=== PATIENT | male | born 1950 | race Caucasian/White ===

== ENCOUNTER 2016-10-13 06:29 | Inpatient (IN) | payer MEDICARE, OTHER ==
[2016-10-02 10:05] VITALS: BMI 54.3
--- NOTE | 2016-10-12 14:27 | HP ---
DATE OF ADMISSION: CHIEF COMPLAINT: Left knee pain. HISTORY OF PRESENT ILLNESS: The patient is a 66-year-old gentleman who presents with progressive left knee pain secondary to osteoarthrosis despite extensive conservative measures. He notes pain that limits his normal function and activities. He has been taking Aleve, in addition has had multiple previous injections. PAST MEDICAL HISTORY: Significant for diabetes, hypertension, arthritis, atrial fibrillation. PAST SURGICAL HISTORY: Significant for colonoscopy and varicose vein surgery. CURRENT MEDICATIONS: 1. Lantus. 2. Lisinopril. 3. Aspirin. 4. Metoprolol. He notes allergies to NOVOCAIN. FAMILY HISTORY: Significant for cancer. SOCIAL HISTORY: Significant for previous tobacco use; however, he quit in 1999. A 16-point review of systems otherwise reviewed and is noncontributory. On examination, the patient is approximately 5 foot 11, 385 pounds of endomorphic habitus. HEENT exam is nonfocal. Neck is supple. He has painless passive motion of his left hip. Straight leg raise is negative. Active motion left knee -8 degrees full extension to 95 degrees of flexion. He is tender about the medial joint line. He has a mild effusion. Collaterals are stable, Rob is negative, Jensen's is equivocal. He has genu varum alignment. His distal neurovascular exam appears to be intact in the left lower extremity. Weight-bearing notch, lateral, and merchant views of the left knee obtained in the office show severe medial and patellofemoral compartment narrowing. IMPRESSION: 1. Left knee severe medial and patellofemoral compartment osteoarthrosis. 2. Increased body mass index. 3. Diabetes. RECOMMENDATIONS: I talked to the patient at length regarding his treatment options. At this point he is quite limited because of pain secondary to his osteoarthrosis. After thorough discussion of his options, he opts to proceed with surgery. We will plan to proceed with left total knee arthroplasty. Risks and benefits are discussed at length in layman's terms. We will institute DVT prophylaxis postoperatively. Patient underwent preoperative medical evaluation by Dr. Orozco.
[~2016-10-13 06:29] MED LIST: ACETAMINOPHEN TAB 500 MG TAB PO ONE; DEXAMETHASONE SOD PHOSPHATE 10 MG/ML 1 ML VIAL IV ONE; HYDROmorphone 1 MG/ML 1 ML SYRINGE IVP PRN; LACTATED RINGERS 1,000 ML IV SCH; MELOXICAM 7.5 MG TAB PO ONE; MIDAZOLAM 2 MG/2 ML VIAL IV PRN; ONDANSETRON 4 MG/2 ML VIAL IVP ONE; TRANEXAMIC ACID 1,000 MG in SODIUM CHLORIDE 0.9% 100 ML IVPB ONE
[2016-10-13 07:09] LABS: Glucose,Whole Blood 142 mg/dL (75-99)
[2016-10-13] MEDS: LACTATED RINGERS 1,000 ML IV SCH (07:16)
[2016-10-13] MEDS ORDERED: fentaNYL (PF) 50 MCG/ML 2 ML AMP IV ONE (07:45)
[2016-10-13] MEDS ORDERED: ePHEDrine 50 MG/ML 1 ML AMP ONE (08:35)
[2016-10-13] MEDS ORDERED: fentaNYL (PF) 50 MCG/ML 2 ML AMP ONE (08:35)
[2016-10-13] MEDS ORDERED: ceFAZolin 10 GM VIAL IVPB ONE (08:35)
[2016-10-13] MEDS ORDERED: MIDAZOLAM 2 MG/2 ML VIAL ONE (08:35)
[2016-10-13] MEDS ORDERED: PROPOFOL 10 MG/ML 20 ML VIAL IV ONE (08:35)
[2016-10-13] MEDS ORDERED: SODIUM CHLORIDE 0.9% IRRIG 3,000 ML BAG IRRIGATION ONE (08:35)
[2016-10-13] MEDS ORDERED: MORPHINE SULFATE (PF) 0.3 MG/0.3 ML SYR ONE (08:35)
[2016-10-13] MEDS ORDERED: LACTATED RINGERS 1,000 ML BAG IV ONE (08:35)
[2016-10-13] MEDS ORDERED: PHENYLEPHRINE-0.9% NACL SYG 1 MG/10 ML SYRINGE ONE (08:35)
[2016-10-13] MEDS ORDERED: ceFAZolin 1,000 MG VIAL ONE (08:35)
[2016-10-13] MEDS ORDERED: ROPIVACAINE 246.25 MG, EPINEPHrine 0.5 MG, KETOROLAC 30 MG, cloNIDine HCL/PF 80 MCG, WA... MISCELLANE ONE ×5 (08:40)
[2016-10-13] MEDS: ceFAZolin 3 GM in SODIUM CHLORIDE 0.9% 100 ML IVPB ONE ×2 (08:42→14:25)
[2016-10-13] MEDS: ceFAZolin 3,000 MG in SODIUM CHLORIDE 0.9% IRRIGATIO 3,000 ML IRRIGATION ONE ×2 (09:20→14:25)
[2016-10-13] MEDS: LACTATED RINGERS 1,000 ML IV ONE ×2 (09:49→14:26)
[2016-10-13] MEDS ORDERED: diphenhydrAMINE 50 MG/ML 1 ML VIAL IVP PRN (10:38)
[2016-10-13] MEDS ORDERED: ONDANSETRON 4 MG/2 ML VIAL IVP PRN (10:38)
[2016-10-13] MEDS ORDERED: NALBUPHINE 10 MG/ML AMPUL IV PRN (10:38)
[2016-10-13] MEDS ORDERED: KETOROLAC 30 MG/ML 1 ML VIAL IVP PRN (10:38)
[2016-10-13] MEDS ORDERED: MORPHINE SULFATE 4 MG/ML SYRINGE IVP PRN ×2 (10:38→17:46)
[2016-10-13] MEDS ORDERED: NALOXONE 0.4 MG/ML 1 ML VIAL IV PRN (10:38)
[2016-10-13] MEDS ORDERED: HYDROcodone/APAP 7.5-325MG 1 EACH TAB PO PRN (11:11)
[2016-10-13] MEDS ORDERED: HYDROmorphone 1 MG/ML 1 ML SYRINGE IVP PRN ×2 (11:11)
[2016-10-13] MEDS ORDERED: MAGNESIUM HYDROXIDE 2,400 MG/10 ML CUP PO PRN (11:11)
--- NOTE | 2016-10-13 11:52 | P.OP ---
Date of Procedure: 10/13/16 Preoperative Diagnosis: Left knee severe tricompartmental osteoarthrosis/obesity Postoperative Diagnosis: Same Procedure(s) Performed: Left total knee arthroplasty/cemented/constrained Implants: Depuy TC 3 size 5 cemented femoral component with a 30 mm stem, size 5 cemented tibial component with a 30 mm stem, 10 mm articular surface, 38 mm cemented patellar component Anesthesia: spinal Surgeon: Afshin Waggoner Electrical Contractor #1: Fitz Christy Estimated Blood Loss (ml): 75 Pathology: other (Bone fragments) Condition: stable Disposition: PACU Indications for Procedure: The patient's a 66-year-old male who presents with progressive left knee pain secondary to osteoarthrosis despite conservative measures. A discussion of the risks and benefits of operative intervention versus continued conservative measures was made with patient. He opted to proceed with surgery. Operative risks to include infection, neurovascular injury, development of blood clots, possible component loosening, possible component failure and need for subsequent procedures was discussed. He understood because of his increased body mass index, he is at higher risk for complications. Informed consent was obtained. Operative Findings: As below Description of Procedure: The patient was brought to the operating room, and after induction of spinal anesthesia the left lower extremity was prepped and draped in normal fashion. The limb was elevated to facilitate exsanguination. The tourniquet was inflated to 270 mmHg. A longitudinal incision extending 3 finger breaths above the superior pole of the patella extending to the medial aspect of the tibial tubercle was then made. The skin and subcutaneous tissues were divided sharply. Electrocautery was used for hemostasis. A medial parapatellar arthrotomy is performed. The medial soft tissues to include the superficial and deep portions of the medial collateral ligament were elevated subperiosteally. The medial hamstrings were also elevated subperiosteally. Medial proximal tibial osteophytes were carefully removed. A portion of the retropatellar fat pad was excised sharply. The patella was everted and the knee flexed. A starting hole was made in the distal femur 1 cm anterior to the posterior cruciate ligament origin. An intramedullary guide was then gently inserted planning on 5 valgus distal cut with 9 mm distal resection. The cutting block was pinned in place the distal cut was then made. The anterior referencing sizing guide was utilized. I felt size 5 was most appropriate. 3 of external rotation was built into the system and verified off the trans- epicondylar axis and the posterior condyles. The cutting block was pinned in place. The anterior, posterior, and chamfer cuts were then made. The box guide was inserted in the box cut was then made with a reciprocating saw. The bone fragment was removed. The distal femur was then reamed to the appropriate depth for the stem extension. The trial component was inserted and was fully seated. There is good anterior to posterior and medial to lateral fit. The trial component was then removed. Attention was then paid towards preparing the proximal tibia. An extra medullary guide was utilized in line with the tibial shaft and second metatarsal distally. A 0 cutting block was utilized. I planned on 2 mm resection from the medial compartment. The cutting block was pinned in place. The proximal tibial cut was then made. The bone fragment was removed. The tibia sized most appropriately at a size 5. The flexion and extension gaps were checked and felt to be symmetric. The tibia was prepared in the appropriate rotation with the appropriate drill and keel punch. I planned on a 30 mm tibial extension. The remnants of the medial lateral menisci were excised at the capsular junction with electrocautery. The trial tibial and femoral components were placed along with a 10 mm articular surface. I was able to obtain full flexion and extension with good stability with varus and valgus stress. Attention was then paid towards preparing the patella. A patella reamer was utilized taking this down to 14 mm of bone stock. A good flush cut was made. Patella sized most appropriately 38 mm. The peg holes were drilled. The trial component was placed. The knee was taken through range of motion. I had good patellofemoral tracking with no hands technique. The trial components were then removed. The bony surfaces were prepared with pulsatile lavage and dried. The posterior soft tissues were injected with ropivacaine. The tibial component was then cemented in placed and was fully seated. Excess cement was removed. The femoral component cemented in placed and was fully seated. Excess cement was removed. The trial 10 mm articular surface was placed and the knee was put in full extension. The patella component was cemented in placed and was fully seated. After the cement had sufficiently hardened, the knee was again taken through range of motion felt to be stable in flexion and extension. The trial articular surface removed and the final 10 mm articular surface was placed. This was fully seated. Pulsatile lavage was skin utilized. The medial parapatellar arthrotomy was closed with #2 Ethibond suture. A deep drain was placed exiting laterally. The tourniquet was deflated with approximately 105 minutes total tourniquet time. Final hemostasis was obtained with electrocautery. The second dose of IV TXA was given. The subcutaneous tissues reapproximated interrupted 2-0 Vicryl sutures. The skin was repaired with 3-0 subcu tissues were strata fix suture. Skin tape and adhesive was applied. A sterile dressing was applied. The patient was awoken from sedation and transferred to the recovery room in good condition. Blood loss was estimated 75 mL. No complications were incurred. Sponge and needle counts were correct at the end the case.
[2016-10-13 12:04] LABS: Glucose,Whole Blood 164 mg/dL (75-99)
--- NOTE | 2016-10-13 12:06 | XR ---
EXAMINATION TYPE: XR knee limited LT DATE OF EXAM: 10/13/2016 12:03 PM COMPARISON: NONE HISTORY: Post op FINDINGS: There is a prosthetic knee in near anatomic alignment. There is soft tissue edema and emphysema. Dumas rgical drain noted. IMPRESSION: 1. Postoperative change. Appears in near-anatomic alignment
[2016-10-13] MEDS: traMADol 50 MG TAB PO SCH ×3 (15:43→21:48)
[2016-10-13] MEDS: ceFAZolin 3 GM in SODIUM CHLORIDE 0.9% 100 ML IVPB SCH (16:25)
[2016-10-13 16:48] LABS: Glucose,Whole Blood 182 mg/dL (75-99)
[2016-10-13] MEDS: INSULIN LISPRO (humaLOG) 300 UNIT/3 ML VIAL SQ SCH ×2 (17:30→21:48)
--- NOTE | 2016-10-13 17:50 | CONS ---
DATE OF CONSULTATION: 10/13/2016 REASON FOR CONSULTATION: Medical management requested by Dr. Orozco. CONSULTATION: This is a 66-year-old patient of Dr. Orozco whose chronic stable medical conditions include history of atrial fibrillation, diabetes mellitus, type 2, hypertension, osteoarthritis, sleep apnea; uses a CPAP machine. Patient has undergone left total knee arthroplasty. Post-procedure he is doing well; has actually been up in the hallway. No nausea or vomiting. Patient has lost actually about 100 pounds. Sitting up in a chair. Comfortable. REVIEW OF SYSTEMS: CONSTITUTIONAL: None. HEENT: None. RESPIRATORY: None. CARDIOVASCULAR: None. GASTROINTESTINAL: None. GENITOURINARY: None. MUSCULOSKELETAL: Pain in the joints. DERMATOLOGICAL: None. HEMATOLOGICAL: None. LYMPHATIC: None. PSYCHIATRY: None. NEUROLOGICAL: None. PAST MEDICAL HISTORY: 1. Atrial fibrillation. 2. Diabetes mellitus, type 2. 3. Hypertension. 4. Osteoarthritis. 5. Sleep apnea. PAST SURGICAL HISTORY: 1. Laser surgery. 2. Vein removal from right leg. SOCIAL HISTORY: . Smoked 1 to 2 packs a day for 30 years; stopped 15 years ago. FAMILY HISTORY: Cancer. HOME MEDICATIONS: 1. Potassium 20 mEq a day. 2. Multivitamin 1 tablet p.o. daily. 3. Lopressor/hydrochlorothiazide 50/25 half a tablet p.o. daily. 4. Zestril 10 mg p.o. at bedtime. 5. Lantus 60 units subcutaneously in the morning. 6. Aspirin 325 p.o. daily. 7. Xarelto. ALLERGIES: NONE. On examination, temperature 97.4, pulse 85, respiration 16, blood pressure 92/53, pulse ox 93% on 2 L. GENERAL APPEARANCE: Obese; BMI 54.1. Sitting up, not in distress. EYES: Pupils equal. Conjunctivae normal. HEENT: External appearance of nose and ears normal. Oral cavity normal. NECK: JVD not raised. Mass not palpable. RESPIRATORY: Effort normal. Lungs are clear. CARDIOVASCULAR: First and second sounds normal. No edema. ABDOMEN: Soft, nontender. Liver and spleen not palpable. LYMPHATIC: No lymph node palpable in neck or axillae. PSYCHIATRY: Alert and oriented x3. Mood and affect normal. EXTREMITIES: Left knee in a dressing. INVESTIGATIONS: Accu-Cheks are noted. ASSESSMENT: 1. Morbid obesity; body mass index of 54. 2. Diabetes mellitus, type 2, chronically on insulin. 3. Essential hypertension. 4. Primary osteoarthritis in multiple joints. 5. Obstructive sleep apnea, on CPAP machine. PLAN: Patient's home medications are resumed. Accu-Cheks will be followed. Patient uses CPAP machine. Anticoagulation per Dr. Waggoner. Care was discussed with the patient and family who were at bedside. Thank you, Dr. Waggoner.
[2016-10-13 20:01] LABS: Glucose,Whole Blood 159 mg/dL (75-99)
[2016-10-13] MEDS: LISINOPRIL 10 MG TAB PO SCH (21:48)
[2016-10-13] MEDS: SENNOSIDES-DOCUSATE SODIUM 1 EACH TAB PO SCH (21:48)
[2016-10-14] MEDS: LACTATED RINGERS 1,000 ML IV SCH ×2 (00:09→17:45)
[2016-10-14] MEDS: ceFAZolin 3 GM in SODIUM CHLORIDE 0.9% 100 ML IVPB SCH (00:34)
[2016-10-14 07:15] LABS: Glucose,Whole Blood 124 mg/dL (75-99)
[2016-10-14 07:17] LABS: INR 1.1 (<1.1); Prothrombin Time 10.7 sec (9.0-12.0)
[2016-10-14 07:21] LABS: Basophils % (A) 0 %; CH 30.6; CHCM 33.8; Eosinophils % (A) 0 %; HCT 38.2 % (39.0-53.0); HDW 2.65; HGB 12.5 gm/dL (13.0-17.5); Luc # (Auto) 0.12; Luc % (Auto) 2; Lymphocytes # (A) 0.6 k/uL (1.0-4.8); Lymphocytes % (A) 8 %; MCH 29.7 pg (25.0-35.0); MCHC 32.6 g/dL (31.0-37.0); Mean Platelet Volume 7.4; Monocytes # (A) 0.6 k/uL (0-1.0); Monocytes % (A) 8 %; Neutrophils % (A) 82 %; RDW 13.2 % (11.5-15.5); WBC 7.3 k/uL (3.8-10.6); WBC (Perox) 8.19
[2016-10-14] MEDS: INSULIN GLARGINE 100 UNIT/ML 10 ML VIAL SQ SCH (08:06)
[2016-10-14] MEDS: FAMOTIDINE 20 MG TAB PO SCH (08:06)
[2016-10-14] MEDS: POTASSIUM CHLORIDE ER 20 MEQ TAB.ER PO SCH (08:06)
[2016-10-14] MEDS: traMADol 50 MG TAB PO SCH ×4 (08:07→20:42)
[2016-10-14] MEDS: HYDROcodone/APAP 7.5-325MG 1 EACH TAB PO PRN ×3 (08:08→19:43)
[2016-10-14] MEDS: hydrOXYzine PAMOATE 25 MG CAP PO PRN ×3 (08:08→19:43)
[2016-10-14] MEDS: HYDROCHLOROTHIAZIDE 12.5 MG CAP PO SCH (08:16)
[2016-10-14] MEDS: INSULIN LISPRO (humaLOG) 300 UNIT/3 ML VIAL SQ SCH ×5 (08:17→20:43)
[2016-10-14] MEDS: METOPROLOL TARTRATE 25 MG TAB PO SCH (08:17)
[2016-10-14] MEDS ORDERED: RIVAROXABAN 10 MG TAB PO SCH (09:00)
[2016-10-14] MEDS ORDERED: ENOXAPARIN 30 MG/0.3 ML SYRINGE SQ SCH (09:00)
--- NOTE | 2016-10-14 10:26 | P.PN ---
Progress Note - Text Postoperative day 1 status post total knee arthroplasty ,under spinal anesthesia , and intrathecal morphine given for postoperative analgesia, patient doing well , there is no anesthesia related complications, further management as per her primary team
--- NOTE | 2016-10-14 11:34 | P.PN ---
Subjective Principal diagnosis: Status post left total knee arthroplasty Patient is seen today resting in his hospital chair, his is present at bedside. Patient states he is doing very well. He's ambulated well with therapy at this time. His pain is well-controlled with oral medication. He denies any chest pain, shortness of breath, nausea vomiting, fever chills. Objective - Vital Signs Vital signs: Vital Signs Temp 97.8 F 10/14/16 07:48 Pulse 74 10/14/16 07:48 Resp 15 10/14/16 08:00 BP 108/63 10/14/16 07:48 Pulse Ox 96 10/14/16 10:05 Intake & Output 10/13/16 10/14/16 10/14/16 18:59 06:59 18:59 Intake Total 2141 720 Output Total 525 1160 500 Balance 1616 -440 -500 Intake: IV 1901 720 Lactated Ringers 1,000 ml 720 @ 60 mls/hr IV .[id number] XOCHILT Rx#:[id number] Oral 240 Output: Drainage 420 Left Knee 420 Urine 400 740 500 Uretheral (Tomlin) 740 500 Estimated Blood Loss 125 Other: Voiding Method Indwelling Catheter Indwelling Catheter Indwelling Catheter - Exam Left lower extremity: Incision is clean, dry, and intact. Minimal soft tissue swelling present around the knee. Calf is soft, no tenderness with palpation. Anterior posterior arms of the upper leg are soft. Plantar flexion, dorsiflexion, EHL, FHL are intact. Sensory exam to light touch throughout the extremities intact, capillary refill is less than 3 seconds. - Labs CBC & Chem 7: 10/14/16 06:40 Labs: Abnormal Lab Results - Last 24 Hours (Table) 10/13/16 10/13/16 10/13/16 Range/Units 12:01 16:46 19:59 RBC (4.30-5.90) m/uL Hgb (13.0-17.5) gm/dL Hct (39.0-53.0) % Lymphocytes # (1.0-4.8) k/uL POC Glucose (mg/dL) 164 H 182 H 159 H (75-99) mg/dL 10/14/16 10/14/16 Range/Units 06:40 07:13 RBC 4.20 L (4.30-5.90) m/uL Hgb 12.5 L (13.0-17.5) gm/dL Hct 38.2 L (39.0-53.0) % Lymphocytes # 0.6 L (1.0-4.8) k/uL POC Glucose (mg/dL) 124 H (75-99) mg/dL Assessment and Plan Plan: Assessment: 1. Postop day #1 status post left total knee arthroplasty Plan: 1. Pain control, continue use of oral medication 2. Continue therapy and CPM 3. Daily dressing changes/ice and elevate 4. Encourage incentive spirometer 5. GI and DVT prophylaxis, we'll resume Xarelto 10 mg, discontinue both Lovenox and Coumadin 6. Medical recommendations 7. Discharge planning: Patient will be likely discharged home tomorrow Time with Patient: Less than 30
[2016-10-14 12:29] LABS: Glucose,Whole Blood 112 mg/dL (75-99)
[2016-10-14 17:35] LABS: Glucose,Whole Blood 145 mg/dL (75-99)
[2016-10-14] MEDS ORDERED: WARFARIN 7.5 MG TAB PO ONE (18:00)
[2016-10-14 18:32] VITALS: RESP 16
[2016-10-14] MEDS: SENNOSIDES-DOCUSATE SODIUM 1 EACH TAB PO SCH (19:43)
[2016-10-14] MEDS: LISINOPRIL 10 MG TAB PO SCH (19:43)
[2016-10-14 20:42] LABS: Glucose,Whole Blood 144 mg/dL (75-99)
--- NOTE | 2016-10-14 22:10 | PN ---
DATE OF SERVICE: 10/14/2016 PRESENTING COMPLAINT: Status post left knee surgery. INTERVAL HISTORY: The patient is status post left knee surgery. Has been up in the hallway. No chest pain, shortness of breath. Did tolerate his diet. Family at the bedside. Review systems done for constitutional, cardiovascular, GI, pulmonary; relevant findings, as above. Current medications are reviewed. On examination, temperature 97.8, pulse 74, respirations 16, blood pressure 118/63, pulse ox 97% on room air. GENERAL APPEARANCE: Sitting up in a chair, comfortable. EYES: Pupils equal. Conjunctivae normal. Not raised. Mass not palpable. RESPIRATORY: Effort normal. Lungs are clear. CARDIOVASCULAR: First and second sounds normal. No edema. ABDOMEN: Soft, nontender. Liver and spleen not palpable. PSYCHIATRY: Alert and oriented x3. Mood and affect normal. INVESTIGATIONS: White count 7.3, hemoglobin 12.5. ASSESSMENT: 1. Morbid obesity, body mass index of 54. 2. Diabetes mellitus type 2, chronically on insulin. 3. Essential hypertension. 4. Primary osteoarthritis of multiple joints. 5. Obstructive sleep apnea on CPAP machine. PLAN: Care was discussed with the patient. Overall doing much better. Care was discussed with the family at the bedside. Thank you, Dr. Waggoner.
[2016-10-15] MEDS: HYDROcodone/APAP 7.5-325MG 1 EACH TAB PO PRN ×2 (04:52→10:27)
[2016-10-15] MEDS: hydrOXYzine PAMOATE 25 MG CAP PO PRN ×2 (04:52→10:27)
[2016-10-15 07:16] LABS: Glucose,Whole Blood 151 mg/dL (75-99)
[2016-10-15] MEDS ORDERED: RIVAROXABAN 10 MG TAB PO SCH (09:00)
[2016-10-15] MEDS: FAMOTIDINE 20 MG TAB PO SCH (09:07)
[2016-10-15] MEDS: POTASSIUM CHLORIDE ER 20 MEQ TAB.ER PO SCH (09:07)
[2016-10-15] MEDS: METOPROLOL TARTRATE 25 MG TAB PO SCH (09:07)
[2016-10-15] MEDS: HYDROCHLOROTHIAZIDE 12.5 MG CAP PO SCH (09:08)
[2016-10-15] MEDS: LACTATED RINGERS 1,000 ML IV SCH (09:08)
[2016-10-15] MEDS: INSULIN LISPRO (humaLOG) 300 UNIT/3 ML VIAL SQ SCH ×2 (09:08→13:05)
[2016-10-15] MEDS: traMADol 50 MG TAB PO SCH ×2 (09:17→13:14)
[2016-10-15] MEDS: INSULIN GLARGINE 100 UNIT/ML 10 ML VIAL SQ SCH (09:18)
--- NOTE | 2016-10-15 09:57 | P.PN ---
Subjective Principal diagnosis: Status post left total knee arthroplasty Patient is seen today resting in his hospital chair. Patient states he is doing very well. His pain is well-controlled with oral medication. He denies any chest pain, shortness of breath, nausea vomiting, fever chills. Objective - Vital Signs Vital signs: Vital Signs Temp 98.3 F 10/15/16 01:59 Pulse 90 10/15/16 01:59 Resp 16 10/15/16 03:05 BP 115/63 10/15/16 01:59 Pulse Ox 94 L 10/15/16 01:59 Intake & Output 10/14/16 10/15/16 10/15/16 18:59 06:59 18:59 Intake Total 1320 Output Total 2500 1500 Balance -1180 -1500 Intake: IV 480 Lactated Ringers 1,000 ml 480 @ 60 mls/hr IV .[id number] XOCHILT Rx#:[id number] Oral 840 Output: Urine 2500 1500 Uretheral (Tomlin) 500 Other: Voiding Method Indwelling Catheter Toilet Urinal # Voids 1 - Exam Left lower extremity: Incision is clean, dry, and intact. Minimal soft tissue swelling present around the knee. Calf is soft, no tenderness with palpation. Anterior posterior arms of the upper leg are soft. Plantar flexion, dorsiflexion, EHL, FHL are intact. Sensory exam to light touch throughout the extremities intact, capillary refill is less than 3 seconds. - Labs CBC & Chem 7: 10/14/16 06:40 Labs: Abnormal Lab Results - Last 24 Hours (Table) 10/14/16 10/14/16 10/14/16 Range/Units 12:28 17:32 20:41 POC Glucose (mg/dL) 112 H 145 H 144 H (75-99) mg/dL 10/15/16 Range/Units 06:58 POC Glucose (mg/dL) 151 H (75-99) mg/dL Assessment and Plan Plan: Assessment: 1. Postop day #2 status post left total knee arthroplasty Plan: 1. Pain control, continue use of oral medication 2. Continue therapy and CPM 3. Daily dressing changes/ice and elevate 4. Encourage incentive spirometer 5. GI and DVT prophylaxis, we will discharge home on Xarelto 10 mg 6. Medical recommendations 7. Discharge planning: Patient will be discharged home likely today Time with Patient: Less than 30
--- NOTE | 2016-10-15 09:59 | P.DS ---
Providers Date of admission: 10/13/16 06:29 Expected date of discharge: 10/15/16 Attending physician: Afshin Waggoner Consults: 10/13/16 11:15 Consult Physician Routine Consulting Provider: Cristobal Bains Consult Reason/Comments: Medical Management Do you want consulting provider notified?: Yes Primary care physician: [facility] Hospital Course: Date of admission: 10/13/2016 Date of discharge: 10/15/2016 Admission diagnosis: Status post left total knee arthroplasty Discharge diagnosis: Same Attending physician: Dr. Waggoner Surgical procedures: Left total knee arthroplasty Brief history: Patient is a 66-year-old male with a history of progressive primary left knee osteoarthritis. At this point patient has failed conservative treatment measures and has opted to proceed with a elective left total knee arthroplasty. Hospital course: Details of patient's surgery can be found in operative report. Patient tolerated the procedure well and was subsequently transported to orthopedic floor. Patient's orthopeidc and medical care was provided daily. Patient had daily laboratory tests performed for evaluation of overall blood counts. Patient had daily physical therapy to include strengthening range of motion as well as education with walker ambulation. Patient had daily CPM usage as part of their physical therapy program. Patient was treated with Xarelto for their postoperative DVT prophylaxis during their inpatient stay. Patient was noted to have a relatively uneventful postoperative course. Patient reported satisfactory pain control with oral pain medications by postoperative day 0. Patient showed satisfactory progress with physical therapy. Patient moved steadily through the program and had no difficulty meeting the goals by postoperative day 2. Given patient's otherwise satisfactory course and having met physical therapy goals, plan is to discharge patient home on postoperative day 2. Discharge condition/disposition: Patient will be discharged home in stable condition. Discharge medications: Instructions are given on resumption of patient's normal daily medications per primary care recommendation, in addition patient will be prescribed Marion 7.5 mg/325 mg, tramadol 50 mg, Colace 100 mg, Xarelto 10 mg. Discharge instructions: 1. Wound care and infection precautions, keep incision dry and covered while showering, no lotions, creams, moisturizers. No soaking, tubs, pools, hottubs. Do not scrub over the incision. 2. Weight-bear as tolerated with walker / cane until follow-up. 3. Ice and elevate when necessary. Do not exceed 20 minutes per hour with ice pack. 4. Utilize compression sleeve until seen at first follow up appointment. 5. Visiting nursing care. 6. Home physical therapy including home CPM. 7. Pain meds and anticoagulants per prescription. 8. Pain medication has potential to cause constipation. Increase oral fluid and fiber intake. Contact primary care provider if you have not had a bowel movement within 48 hours after discharge 9. No anti-inflammatory medication until discussed at first post operative visit, this including Motrin, Aleve, Mobic, Diclofenac. 10. Follow up in office at 2 weeks postop with Kaushal Christy PA-C 11. Follow up with your primary care doctor 7-10 days after discharge. 12. Contact [facility] with any questions, . Procedures: Left total knee arthroplasty Patient Condition at Discharge: Good Plan - Discharge Summary New Discharge Prescriptions: Docusate [Colace] 100 mg PO DAILY #20 capsule HYDROcodone/APAP 7.5-325MG [Marion 7.5] 1 - 2 each PO Q6HR PRN #60 tab PRN Reason: Pain Rivaroxaban [Xarelto] 10 mg PO DAILY #12 tab traMADol HCl [Ultram] 50 mg PO Q6H PRN #40 tab PRN Reason: Pain Discharge Medication List Aspirin 325 mg PO DAILY 09/03/16 [History] Insulin Glargine [Lantus] 60 unit SQ QAM 09/03/16 [History] Lisinopril [Zestril] 10 mg PO HS 09/03/16 [History] Metoprolol/Hydrochlorothiazide [Lopressor Hct 50-25 mg Tab] 0.5 tab PO QAM 09/03 [History] Multivitamins, Thera [Multivitamin] 1 tab PO DAILY 09/03/16 [History] Potassium Chloride [Klor-Con 20] 20 meq PO DAILY 09/03/16 [History] Rivaroxaban [Xarelto] 10 mg PO DAILY #12 tab 10/13/16 [Rx] Docusate [Colace] 100 mg PO DAILY #20 capsule 10/15/16 [Rx] HYDROcodone/APAP 7.5-325MG [Marion 7.5] 1 - 2 each PO Q6HR PRN #60 tab 10/15/16 [ Rx] traMADol HCl [Ultram] 50 mg PO Q6H PRN #40 tab 10/15/16 [Rx] Follow up Appointment(s)/Referral(s): [facility], [NON-STAFF] - Jim Orozco DO [Primary Care Provider] - 1 Week (pateint has appt to see dr orozco on 10-23-2016) [employer] Christy, JOSÉ LUIS [PHYSICIAN SAND DIGGER] - 10/30/16 1:30 pm Activity/Diet/Wound Care/Special Instructions: [facility] -[phone] CPM - has at home *quilting supervisor Katiuska alcantar from [facility] Orthopedic Discharge Instructions: 1. Wound care and infection precautions, keep incision dry and covered while showering, no lotions, creams, moisturizers. No soaking, pools, hot tubs. Do not scrub over incision. 2. Weight-bear as tolerated with walker / cane until follow-up. 3. Ice and elevate when necessary. Do not exceed 20 minutes per hour with ice pack. 4. Utilize compression sleeve until seen at first follow up appointment. 5. Visiting nursing care. 6. Home physical therapy including home CPM. 7. Pain meds and anticoagulants per prescription. 8. Pain medication has potential to cause constipation. Increase oral fluid and fiber intake. Contact primary care provider if you have not had a bowel movement within 48 hours after discharge. 9. No anti-inflammatory medication until discussed at first post operative visit, this including Motrin, Aleve, Mobic, Diclofenac. 10. Follow up in office at 2 weeks postop with Kaushal Christy PA-C 11. Follow up with your primary care doctor 7-10 days after discharge. 12. Contact [facility] with any questions, . Discharge Disposition: HOME WITH HOME HEALTH SERVICES
[2016-10-15 10:47] VITALS: BP 138/75; PULSE 95; TEMP 98.9
[2016-10-15 12:42] LABS: Glucose,Whole Blood 133 mg/dL (75-99)
--- NOTE | 2016-10-15 22:32 | PN ---
DATE OF SERVICE: 10/15/2016 PRESENTING COMPLAINT: Left knee surgery. INTERVAL HISTORY: Patient was seen by me this morning; doing much better. With therapy some pain is present. There is no chest pain, shortness of breath. His is at the bedside. Review of systems done for constitutional, cardiovascular, GI, pulmonary; relevant findings as above. Current medications are reviewed. On examination, temperature 98.9, pulse 95, respiration 16, blood pressure 130/75, pulse ox 94% on room air. GENERAL APPEARANCE: Sitting up, comfortable. EYES: Pupils equal. Conjunctivae normal. NECK: JVD not raised. Mass not palpable. RESPIRATORY: Effort normal. Lungs are clear. CARDIOVASCULAR: First and second sounds normal. No edema. ABDOMEN: Soft, non-tender. Liver and spleen not palpable. PSYCHIATRY: Alert and oriented x3. Mood and affect normal. INVESTIGATIONS: Accu-Cheks are noted. ASSESSMENT: 1. Morbid obesity; body mass index of 54. 2. Diabetes mellitus, type 2, chronically on insulin. 3. Essential hypertension. 4. Primary osteoarthritis of multiple joints. 5. Obstructive sleep apnea; uses CPAP machine. PLAN: Care was discussed with the patient and his . ( ) follow up with family doctor upon discharge. Thank you, Dr. Waggoner.
== END 2016-10-15 14:32 | disposition home health service (06) | DRG 470 ==
LOC: 2ORMAIN 06:29 → 3SUR 11:33
PROVIDERS: ADMIT Orthopaedic Surgery; ATTEND Orthopaedic Surgery
PROC: 0SRD0J9 Replacement of Left Knee Joint with Synthetic Substitute, Cemented, Open Approach (ICD-10-PCS; principal; 2016-10-13 08:00)
DX: M17.12 Unilateral primary osteoarthritis, left knee (principal); I48.91 Unspecified atrial fibrillation; I10 Essential (primary) hypertension; E11.9 Type 2 diabetes mellitus without complications; G47.33 Obstructive sleep apnea (adult) (pediatric); Z87.891 Personal history of nicotine dependence; M21.162 Varus deformity, not elsewhere classified, left knee; Z79.82 Long term (current) use of aspirin; Z79.4 Long term (current) use of insulin; Z79.899 Other long term (current) drug therapy; Z88.4 Allergy status to anesthetic agent
CPT/HCPCS: 83036; 85025; 85610; 88300

== ENCOUNTER → 2017-06-23 | Outpatient (CLI) | payer MEDICARE, OTHER ==
--- NOTE | 2017-06-23 11:14 | FL ---
EXAMINATION TYPE: FL UGI DATE OF EXAM: 06/23/2017 COMPARISON: NONE HISTORY: Dysphasia, food getting stuck in lower esophagus per patient. TECHNIQUE: A double contrast UGI study is performed utilizing air and barium. A total of 45 seconds of fluoroscopic time was utilized during procedure. A total of 31 spot fluoroscopic images are saved to PACS. FINDINGS: Sheet Metal Pattern Cutter images of the abdomen shows overall nonobstructive bowel gas pattern. Moderate to se isi spurring and disc space narrowing throughout the thoracolumbar spine is present. Exam is slightl y suboptimal due to patient's body habitus, could not evaluate in oblique and true lateral positionin g. The esophagus shows satisfactory motility and emptying into the stomach during upright imaging. Some dysmotility and diminished peristalsis prone drinking is noted. A small sliding-type hiatal hernia is seen. No intraluminal mass or suspicious stricture is identified. The stomach shows satisfactory distensibility, peristalsis, and mucosal folds. No evidence of any ma ss or ulcer disease. No significant gastroesophageal reflux was seen during real time performance of this study. The duodenal bulb, sweep, and proximal small bowel loops are unremarkable. IMPRESSION: No significant finding is seen to account for patient's symptoms. No distal esophageal st ricture or mass is noted.
== END | disposition home or self-care (01) ==
LOC: RADFLWHC 10:06
PROVIDERS: ATTEND Family Medicine
DX: R13.19 Other dysphagia (principal)
CPT/HCPCS: 74240

== ENCOUNTER → 2018-03-15 | Outpatient (CLI) | payer MEDICARE, OTHER ==
--- NOTE | 2018-03-15 10:09 | FL ---
EXAMINATION TYPE: FL barium swallow DATE OF EXAM: 03/15/2018 CLINICAL HISTORY: Dysphasia TECHNIQUE: A double contrast esophagram is performed utilizing air and barium. A total of 38 second s of fluoroscopic time was utilized during procedure. 16 images submitted. COMPARISON: None FINDINGS: The esophagus shows normal motility and emptying into the stomach. There was a stricture of the distal esophagus near the GE junction extending several centimeters. There is mild irregularity of the mucosa. No definite gastroesophageal reflux. IMPRESSION: Stricture of the distal esophagus with irregular mucosa correlate with direct visualizati on to assess for mass or mucosal lesion. Otherwise consider reflux stricture.
--- NOTE | 2018-03-15 10:55 | US ---
EXAMINATION TYPE: US thyroid st tissue head/neck DATE OF EXAM: 03/15/2018 COMPARISON: NONE CLINICAL HISTORY: R47.02 DYSPHAGIA. Having Barium Swallow today. GLAND SIZE: Right Lobe: 4.5 x 2.7 x 2.6 cm Overall Parenchyma: heterogenous Left Lobe: 4.3 x 1.9 x 2.4 cm Overall Parenchyma: heterogeneous Isthmus Thickness: 0.5 cm NODULES RIGHT: # of nodules measured on right: 1 1. 0.5 X 0.5 x 0.2 cm hyperechoic with posterior shadowing solid /clustered nodule at the lateral u pper pole with irregular margins; present with microcalcifications. This nodule is wider than tall a nd shows no intranodular vascularity. LEFT: # of nodules measured on left: 1 1. 0.2 X 0.2 x 0.2 cm hypoechoic cystic nodule at the mid pole with well-defined margins. This nod ule is wider as is tall and shows no intranodular vascularity. ISTHMUS: # of nodules measured in the isthmus: 0 Bilateral neck scanned, no evidence of lymphadenopathy. IMPRESSION: Subcentimeter thyroid nodules of questionable clinical significance
== END ==
LOC: RADUSMAIN 08:14
PROVIDERS: ATTEND Family Medicine
DX: K22.2 Esophageal obstruction (principal); E04.2 Nontoxic multinodular goiter
CPT/HCPCS: 74220; 76536

== ENCOUNTER 2018-04-04 06:53 | Day surgery (SDC) | payer MEDICARE, OTHER ==
[2018-04-01 08:33] VITALS: BMI 50.9
[~2018-04-04 06:53] MED LIST changes: -ACETAMINOPHEN TAB 500 MG TAB PO ONE; -DEXAMETHASONE SOD PHOSPHATE 10 MG/ML 1 ML VIAL IV ONE; -HYDROmorphone 1 MG/ML 1 ML SYRINGE IVP PRN; -MELOXICAM 7.5 MG TAB PO ONE; -MIDAZOLAM 2 MG/2 ML VIAL IV PRN; -ONDANSETRON 4 MG/2 ML VIAL IVP ONE; -TRANEXAMIC ACID 1,000 MG in SODIUM CHLORIDE 0.9% 100 ML IVPB ONE
[2018-04-04 07:18] VITALS: RESP 18; TEMP 97.2
[2018-04-04] MEDS ORDERED: LIDOCAINE 1% 20 ML VIAL (10MG/ML) FOR IV START INTRADERMA ONE (07:20)
[2018-04-04 07:23] LABS: Glucose,Whole Blood 110 mg/dL (75-99)
[2018-04-04] MEDS ORDERED: PROPOFOL 10 MG/ML 20 ML VIAL IV ONE (08:19)
[2018-04-04] MEDS ORDERED: LIDOCAINE 1% INJ 10MG/ML (20 ML MDV) ONE (08:19)
[2018-04-04 08:47] VITALS: PULSE 59
--- NOTE | 2018-04-04 08:47 | P.PCN ---
Date of Procedure: 04/04/18 Procedure(s) Performed: Procedure: Esophagogastroduodenoscopy and biopsy. Preoperative diagnosis: Progressive dysphagia and weight loss. Postoperative diagnosis: 1. Distal esophageal mass consistent with cancer. 2. Mild antral gastritis. 3. Multiple biopsies obtained from the antrum and esophagus. Preparation and sedation: Was provided by anesthesia. Brief clinical history: The patient is a 67-year-old male who is scheduled for this evaluation because of progressive dysphagia over the last the several months. The patient reported 30 pound weight loss because he is avoiding solid food and bread. He has remote history of symptomatic acid reflux. This evaluation is to assess for complicated reflux disease or other pathology. Procedure: With the patient on his left lateral decubitus position and after informed consent and adequate sedation, I passed the Olympus-GIF 160 video upper endoscope through the cricopharyngeus down the esophagus. Starting at around 36 cm from the incisors there was nodularity and irregularity of the wall of the esophagus having the appearance of a spread out esophageal mass without obstructing the lumen and not impeding the advancement of the endoscope. This seems to extend in an interrupted fashion to around the GE junction which was at 41-42 cm from the incisors. The area was somewhat friable and I obtained pictures and multiple biopsies to rule out cancer. The endoscope was passed into the stomach which was insufflated with air and inspected in detail including the retroflex view in the cardia. There was some mottling and erythema in the antrum but no ulcers or erosions. Pyloric channel , duodenal bulb, post bulbar area and descending duodenum appeared within normal limits. I obtained multiple biopsies from the antrum and esophagus as mentioned then the endoscope was withdrawn. The patient tolerated the procedure well Plan: I summarized the findings to the patient and to Mrs. Paredes. Will await biopsy results and make further plans. I will keep you updated on his progress.
[2018-04-04 09:02] VITALS: BP 106/71
== END 2018-04-04 09:15 | disposition home or self-care (01) ==
LOC: ORWHC2ENDO 06:53
DX: C15.5 Malignant neoplasm of lower third of esophagus (principal); K29.50 Unspecified chronic gastritis without bleeding; I48.91 Unspecified atrial fibrillation; E11.9 Type 2 diabetes mellitus without complications; I10 Essential (primary) hypertension; G47.33 Obstructive sleep apnea (adult) (pediatric); Z99.89 Dependence on other enabling machines and devices; Z79.82 Long term (current) use of aspirin; Z79.4 Long term (current) use of insulin; Z79.899 Other long term (current) drug therapy
CPT/HCPCS: 88305; 88342; 88341; 43239; J2001; J2704

== ENCOUNTER → 2018-04-23 | Outpatient (CLI) | payer MEDICARE, OTHER ==
--- NOTE | 2018-04-25 09:11 | PE ---
EXAMINATION TYPE: PET CT fusion skull to thigh DATE OF EXAM: 04/23/2018 CLINICAL HISTORY: 67-year-old male initial staging esophageal cancer. TECHNIQUE: Following the intravenous administration of 14.5 mCi of F-18 FDG, whole body images are performed from the skull base to the midthigh. Images are reviewed on the computer in the coronal, a xial, and sagittal planes. Reconstructed rotating images are created on independent workstation and reviewed on the computer. A localization and attenuation correction CT is performed in conjunction with the PET scan. Glucose level: 120 mg/dL CTDI: 6.61 mGy DLP: 665.81 mGy-cm COMPARISON: Barium swallow 03/15/2018. FINDINGS: PET: Physiologic FDG uptake within the neck. Scattered prominent mediastinal lymph nodes in the right paratracheal region measure up to 1.2 cm but show only minimal FDG uptake. However, a larger precarinal lymph node measuring 1.5 cm shows moderat e uptake, max SUV 4.6. A lower left paraesophageal lymph node on axial image 102 measures 1.5 cm and shows very intense upta ke, max SUV 11.7. Nonspecific 6 mm peripheral right lower lobe pulmonary nodule, too small for adequate PET characteriz ation, shows no significant FDG uptake. There is circumferential thickening noted just above the GE junction with associated intense uptake, max SUV 10.6. Additional focal thickening along the uppermost stomach just below the GE junction show s very intense uptake, max SUV 15.6. Mild heterogeneous liver uptake likely normal variation. Average liver SUV: 2.9. Enlarged peripancreatic/vanessa hepatis lymph node measures 2.8 cm with intense uptake, max SUV 8.0. An aortocaval lymph node at the level of the kidneys measures 1.9 cm, max SUV 4.8. A 1.1 cm retrocaval lymph node at the level of the kidneys shows moderate FDG uptake, max SUV 4.1. Additional scattered borderline sized retroperitoneal lymph nodes show minimal uptake. ATTENUATION CORRECTION CT: Visualized paranasal sinuses are clear. No cervical lymphadenopathy identified. Heart upper limits of normal in size without pericardial effusion. Coronary vessel calcifications are present. Ascending aorta mildly aneurysmal at 4.0 cm. Conventional arch vessel branching anatomy. N o consolidation or pleural effusion. Spleen enlarged measuring 17.2 cm. Adrenal glands are clear. No mesenteric lymphadenopathy seen. No d ilated small bowel, free fluid, or free air. Mild scattered stool. Minimal diverticulosis of the sigm oid colon. Bladder partially urine distended. Phleboliths in the pelvis. No abnormal fluid collection in the pel vis or pelvic lymphadenopathy seen. Bones: Degenerative changes of the hips and left greater than right SI joints as well as degenerative changes throughout the lumbar spine. Endplate spondylosis mid to lower thoracic spine. No osseous de structive process. IMPRESSION: 1. Intense to very intense focal uptake just above and below the GE junction. 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 2. Metastatic lymphadenopathy: Precarinal, lower left paraesophageal, vanessa hepatic/pancreatic head r egion, and a few additional retroperitoneal lymph nodes at the level of the kidneys. Largest lymph no de in the chest measures 1.5 cm and largest lymph node in the upper abdomen measures 2.8 cm. 3. A 6 mm right basilar pulmonary nodule is too small for adequate PET characterization and is nonspe cific. An early metastatic pulmonary nodule is possible. Attention on follow-up. 4. Incidental: Splenomegaly at 17.2 cm.
== END | disposition home or self-care (01) ==
LOC: RADPETMAIN 08:15
PROVIDERS: ATTEND Internal Medicine Hematology & Oncology
DX: C77.2 Secondary and unspecified malignant neoplasm of intra-abdominal lymph nodes (principal); C77.1 Secondary and unspecified malignant neoplasm of intrathoracic lymph nodes; C77.8 Secondary and unspecified malignant neoplasm of lymph nodes of multiple regions; C15.9 Malignant neoplasm of esophagus, unspecified
CPT/HCPCS: 78815; A9552

== ENCOUNTER 2018-05-30 11:09 | Day surgery (SDC) | payer MEDICARE, OTHER ==
[2018-05-26 09:30] VITALS: BMI 49.2
--- NOTE | 2018-05-29 16:29 | P.GSHP ---
History of Present Illness H&P Date: 05/30/18 CHIEF COMPLAINT: Esophageal cancer HISTORY OF PRESENT ILLNESS: The patient is a 67-year-old male diagnosed with esophageal cancer. He needs a Mediport placement for chemotherapy. PAST MEDICAL HISTORY: See list PAST SURGICAL HISTORY: See list CURRENT MEDICATIONS: See list. ALLERGIES: See list. SOCIAL HISTORY: No active tobacco or alcohol use. FAMILY HISTORY: Noncontributory. REVIEW OF ORGAN SYSTEMS: HEENT: History of dysphagia. No troubles with vision or hearing. PHYSICAL EXAMINATION: Vital signs: Stable GENERAL: Well developed and in no acute distress. Pleasant. HEENT: No sclera icterus. Extraocular movements grossly intact. Moist buccal mucosa. Head is atraumatic, normocephalic. Hears conversational speech. No nasal drainage. NECK: Supple without lymphadenopathy. No JV distention. CHEST: Non-labored respirations and equal bilateral excursions. CARDIOVASCULAR: Regular rate and rhythm. Palpable 2+ radial pulses. ABDOMEN: Nontender. MUSCULOSKELETAL: No clubbing, cyanosis or edema. NEUROLOGIC: No focal or lateralizing signs. PSYCH: Appropriate affect. Alert and oriented to person, place and time. ASSESSMENT: 1. Esophageal cancer 2. Need for chemotherapeutic access. PLAN: 1. Agree with Port-A-Cath placement. Past Medical History Past Medical History: Atrial Fibrillation, Cancer, Diabetes Mellitus, Hypertension, Sleep Apnea/CPAP/BIPAP Additional Past Medical History / Comment(s): uses CPAP, past hx. of a-fib; esophageal stricture, esophageal cancer- radiation completed 05/18/18, gout History of Any Multi-Drug Resistant Organisms: None Reported Past Surgical History: Joint Replacement Additional Past Surgical History / Comment(s): total L knee arthroplasty; nasal surg., colonoscopies, vein surg. right leg Past Anesthesia/Blood Transfusion Reactions: Previous Problems w/ Anesthesia Additional Past Anesthesia/Blood Transfusion Reaction / Comment(s): Woke up during knee surg & colonoscopy Smoking Status: Former smoker - Past Family History Father Family Medical History: Cancer Additional Family Medical History / Comment(s): Skin cancer to ear. Brother(s) Family Medical History: Cancer, Deep Vein Thrombosis (DVT) Additional Family Medical History / Comment(s): 1 brother with esophageal CA; 1 brother with CA to " veins of heart" and DVTs. Mother Family Medical History: Dementia Additional Family Medical History / Comment(s): Mother at the age of 87yrs. Medications and Allergies Home Medications Medication Instructions Recorded Confirmed Type Aspirin 325 mg PO DAILY 09/03/16 05/26/18 History Insulin Glargine [Lantus] 60 unit SQ QAM 09/03/16 05/26/18 History Lisinopril [Zestril] 10 mg PO HS 09/03/16 05/26/18 History Metoprolol/Hydrochlorothiazide 0.5 tab PO QAM 09/03/16 05/26/18 History [Lopressor Hct 50-25 mg Tab] Potassium Chloride [Klor-Con 20] 20 meq PO DAILY 09/03/16 05/26/18 History Indomethacin [Indocin] 50 mg PO TID PRN 05/26/18 05/26/18 History Lidocaine Viscous 2% [Xylocaine 1 dose MUCOUS MEM ACHS 05/26/18 05/26/18 History Viscous] Ondansetron HCl [Zofran] 8 mg PO Q8H PRN 05/26/18 05/26/18 History Allergies Allergy/AdvReac Type Severity Reaction Status Date / Time No Known Allergies Allergy Verified 05/26/18 09:08
[~2018-05-30 11:09] MED LIST changes: +DEXAMETHASONE SOD PHOSPHATE 10 MG/ML 1 ML VIAL IV ONE; +LIDOCAINE 1% 20 ML VIAL (10MG/ML) FOR IV START INTRADERMA PRN; +MIDAZOLAM 2 MG/2 ML VIAL IV PRN; +ONDANSETRON 4 MG/2 ML VIAL IVP ONE; +Pre Op ABX Message 1 EACH MISC MISCELLANE ONE; +fentaNYL (PF) 50 MCG/ML 2 ML AMP IV PRN
[2018-05-30 12:03] VITALS: RESP 16; TEMP 97
[2018-05-30] MEDS ORDERED: LIDOCAINE 1% 20 ML VIAL (10MG/ML) FOR IV START INTRADERMA ONE (12:24)
[2018-05-30 12:25] LABS: Glucose,Whole Blood 106 mg/dL (75-99)
[2018-05-30] MEDS ORDERED: FAMOTIDINE 20 MG/2 ML VIAL IV ONE (12:54)
[2018-05-30] MEDS ORDERED: LIDOCAINE 1% INJ 10MG/ML (20 ML MDV) ONE (15:20)
[2018-05-30] MEDS ORDERED: MIDAZOLAM 2 MG/2 ML VIAL ONE (15:20)
[2018-05-30] MEDS ORDERED: PROPOFOL 10 MG/ML 20 ML VIAL IV ONE (15:20)
[2018-05-30] MEDS ORDERED: fentaNYL (PF) 50 MCG/ML 2 ML AMP ONE (15:20)
[2018-05-30] MEDS ORDERED: KETAMINE 10 MG/ML 20 ML VIAL ONE (15:20)
[2018-05-30] MEDS ORDERED: HEPARIN SODIUM,PORCINE 10,000 UNIT/ML 1 ML VIAL IV ONE ×2 (15:46→15:56)
[2018-05-30] MEDS ORDERED: HEPARIN SODIUM,PORCINE 100 UNIT/ML 5 ML VIAL IV ONE ×2 (15:46→15:56)
[2018-05-30] MEDS ORDERED: BUPIVACAIN-EPI 0.25%-1:200,000 30 ML VIAL SQ ONE ×2 (15:46→15:56)
[2018-05-30] MEDS ORDERED: LACTATED RINGERS 1,000 ML IV ONE (16:30)
--- NOTE | 2018-05-30 16:42 | P.OP ---
Date of Procedure: 05/30/18 Description of Procedure: SURGEON: CASSIE CORBETT MD SLAB TRIPPER: None. PREOPERATIVE DIAGNOSES: 1. Esophageal cancer 2. Morbid obesity next calories, BMI 49.2 3. Diabetes type 2, insulin-dependent 4. Gastroesophageal reflux disease 5. Hypertensive heart disease 6. Gout POSTOPERATIVE DIAGNOSES: 1. Esophageal cancer 2. Morbid obesity next calories, BMI 49.2 3. Diabetes type 2, insulin-dependent 4. Gastroesophageal reflux disease 5. Hypertensive heart disease 6. Gout PROCEDURES PERFORMED: 1. Ultrasound guided central venous access of the right internal jugular venous vein. 2. Fluoroscopic guidance for central venous access right internal jugular vein, 1 seconds. 3. Placement of right internal jugular power port 6 [place] by [employer], [employer] Plus Port ANESTHESIA: IV sedation with local. ESTIMATED BLOOD LOSS: 5 mL. SPECIMENS REMOVED: None. COMPLICATIONS: None. INDICATIONS: The patient is a 67-year-old male with history of esophageal cancer. He presents for chemotherapeutic access. Benefits and risks of surgical intervention were described including bleeding, infection, mechanical problems with his port. Informed consent was obtained. DESCRIPTION OR PROCEDURE: Patient was brought into the operating room, laid in supine position. After adequate IV sedation, the chest and right neck were prepped and draped in a standard sterile fashion including the shoulder with ChloraPrep. Timeout protocol was confirmed with the surgical team regarding the patient's name, procedure to be performed including preoperative medications for which she received IV antibiotics. Bilateral SCDs were placed. An ultrasound was used to capture views of the right internal jugular vein including right carotid artery, which was patent and without thrombus along its course. The right IJ was then localized using anesthetic for the skin. A 16 [place] needle was used to access the IJ. A guidewire was advanced into the IJ with dark nonpulsatile venous blood. Two fingerbreadths distal to the clavicle, on the lateral third, a transverse 1.5 to 2 cm incision was deepened into the skin after localizing the skin. A pocket was created for the port. The port on the back table was flushed with heparinized saline and then attached to the catheter tubing. An adapter was fastened to the actual port site over the tubing. The port easily had fit snug into the pocket. A subcutaneous tunneler was placed along the open end of the tubing and brought out through the separate stab incision. Fluoroscopic guidance confirmed no kinking along the tubing and the port site. Next, the J-wire was exchanged for a catheter sheath for which the tubing was cut to 20 cm and then advanced through the catheter sheath. The Peel-away sheath was then removed and the tubing was secured at the junction of the superior vena cava as well as the right atrium. The tubing was found to be crossed however functional. This was all done under fluoroscopic guidance under 1 seconds. Easy pullback as well as return and aspiration was obtained of the port site. The skin incision was closed using layers using 3-0 Vicryl for the subcu followed by 4-0 Monocryl in a running subcuticular fashion. At the stick site this was also reapproximated using 4-0 Monocryl. The incisions were covered with Optifoam, The skin was cleansed and Exofin liquid glue was applied. Optifoam dressing was placed over the port site. A total of 20 mL of local anesthetic was placed. At the end of the procedure, needle, sponge, and instrument count was verified correct by surgical scheduler. Heparin lock of 5 mL was placed. The patient was awoken and pain free and taken to the second stage postanesthesia care unit. The patient tolerated the procedure well. FINDINGS: 1. No thrombus encountered along the right carotid artery or internal jugular vein. 2. Access of the right internal jugular vein under ultrasound guidance. 3. Fluoroscopy of 1 seconds. Plan - Discharge Summary New Discharge Prescriptions: No Action Potassium Chloride [Klor-Con 20] 20 meq PO DAILY Aspirin 325 mg PO DAILY Lisinopril [Zestril] 10 mg PO HS Metoprolol/Hydrochlorothiazide [Lopressor Hct 50-25 mg Tab] 0.5 tab PO QAM Insulin Glargine [Lantus] 60 unit SQ QAM Indomethacin [Indocin] 50 mg PO TID PRN PRN Reason: gout Lidocaine Viscous 2% [Xylocaine Viscous] 1 dose MUCOUS MEM ACHS Ranitidine HCl [Zantac] 150 mg PO BID Ondansetron HCl [Zofran] 8 mg PO Q8HR PRN PRN Reason: Nausea Loratadine [Claritin] 10 mg PO DAILY Discharge Medication List Aspirin 325 mg PO DAILY 09/03/16 [History] Insulin Glargine [Lantus] 60 unit SQ QAM 09/03/16 [History] Lisinopril [Zestril] 10 mg PO HS 09/03/16 [History] Metoprolol/Hydrochlorothiazide [Lopressor Hct 50-25 mg Tab] 0.5 tab PO QAM 09/03 [History] Potassium Chloride [Klor-Con 20] 20 meq PO DAILY 09/03/16 [History] Indomethacin [Indocin] 50 mg PO TID PRN 05/26/18 [History] Lidocaine Viscous 2% [Xylocaine Viscous] 1 dose MUCOUS MEM ACHS 05/26/18 [ History] Loratadine [Claritin] 10 mg PO DAILY 05/30/18 [History] Ondansetron HCl [Zofran] 8 mg PO Q8HR PRN 05/30/18 [History] Ranitidine HCl [Zantac] 150 mg PO BID 05/30/18 [History] Patient Instructions/Handouts: *Surgery [facility] - (Anesthesia) Discharge Instructions Outpatient Surgery
--- NOTE | 2018-05-30 17:02 | XR ---
EXAMINATION TYPE: XR chest 1V confirm line [facility] DATE OF EXAM: 05/30/2018 COMPARISON: NONE HISTORY: Postop catheter placement TECHNIQUE: Single frontal view of the chest is obtained. FINDINGS: There is a right side central venous jugular catheter with the tip in the superior vena ca va. There is no pleural effusion or pneumothorax. Lungs are clear of infiltrate. Heart and mediastinu m are normal. IMPRESSION: No complicating process seen.
[2018-05-30 17:04] VITALS: BP 110/72; PULSE 87
--- NOTE | 2018-05-30 17:55 | FL ---
Fluoroscopy HISTORY: Port-A-Cath insertion 1 seconds fluoroscopy time supplied to the referring clinician. 1 intraoperative C-arm images docume nt the procedure. See dictated report from general surgery.
== END 2018-05-30 17:24 | disposition home or self-care (01) ==
LOC: OR 11:09
PROVIDERS: ATTEND Surgery Plastic and Reconstructive Surgery
DX: C15.9 Malignant neoplasm of esophagus, unspecified (principal); I10 Essential (primary) hypertension; I48.91 Unspecified atrial fibrillation; E11.9 Type 2 diabetes mellitus without complications; Z79.4 Long term (current) use of insulin; G47.33 Obstructive sleep apnea (adult) (pediatric); Z99.89 Dependence on other enabling machines and devices; E66.01 Morbid (severe) obesity due to excess calories; Z68.42 Body mass index [BMI] 45.0-49.9, adult; K21.9 Gastro-esophageal reflux disease without esophagitis; I11.9 Hypertensive heart disease without heart failure; Z92.3 Personal history of irradiation; Z87.891 Personal history of nicotine dependence; Z79.82 Long term (current) use of aspirin; Z79.899 Other long term (current) drug therapy
CPT/HCPCS: 77001; 36561; 76937; C1788; J2250; J1644; J1642; J1100; J2405; J2001; J3010; J2704

== ENCOUNTER 2018-06-01 01:55 | Emergency (ER) | payer MEDICARE, OTHER ==
--- NOTE | 2018-06-01 03:38 | ED ---
Recheck HPI - General Chief Complaint: Recheck/Abnormal Lab/Rx Stated Complaint: Constipation Time Seen by Provider: 06/01/18 02:08 Source: patient Mode of arrival: ambulatory Limitations: no limitations - History of Present Illness Initial Comments: 67-year-old male patient presents to the emergency department today for evaluation of constipation. Patient states that he has not had a normal bowel movement for the last 6 days. Patient states he has been getting out small amounts of hard stool. Patient states that today he feels that the stool is in the rectum and he is unable to push it out. Patient states he has had some bright red spotting and some perianal discomfort. States he does have hemorrhoids. Patient denies any abdominal pain, nausea, or vomiting with this. Patient did recently complete radiation for esophageal cancer and will start chemotherapy tomorrow. He denies any fever or chills. Patient denies any recent rash, shortness breath, chest pain, back pain, numbness, tingling, dizziness, weakness, hematuria, dysuria, urinary urgency, urinary frequency, headache, visual changes, or any other complaints. - Related Data Home Medications Medication Instructions Recorded Confirmed Aspirin 325 mg PO DAILY 09/03/16 05/30/18 Insulin Glargine [Lantus] 60 unit SQ QAM 09/03/16 05/30/18 Lisinopril [Zestril] 10 mg PO HS 09/03/16 05/30/18 Metoprolol/Hydrochlorothiazide 0.5 tab PO QAM 09/03/16 05/30/18 [Lopressor Hct 50-25 mg Tab] Potassium Chloride [Klor-Con 20] 20 meq PO DAILY 09/03/16 05/30/18 Indomethacin [Indocin] 50 mg PO TID PRN 05/26/18 05/30/18 Lidocaine Viscous 2% [Xylocaine 1 dose MUCOUS MEM ACHS 05/26/18 05/30/18 Viscous] Loratadine [Claritin] 10 mg PO DAILY 05/30/18 05/30/18 Ondansetron HCl [Zofran] 8 mg PO Q8HR PRN 05/30/18 05/30/18 Ranitidine HCl [Zantac] 150 mg PO BID 05/30/18 05/30/18 Previous Rx's Medication Instructions Recorded Hydrocortisone/Pramoxine 1 applic RECTAL BID #1 bottle 06/01/18 [Proctofoam-Hc 1%-1% Foam] Allergies Allergy/AdvReac Type Severity Reaction Status Date / Time No Known Allergies Allergy Verified 06/01/18 02:02 Review of Systems ROS Statement: Those systems with pertinent positive or pertinent negative responses have been documented in the HPI. ROS Other: All systems not noted in ROS Statement are negative. Past Medical History Past Medical History: Atrial Fibrillation, Cancer, Diabetes Mellitus, Hypertension, Sleep Apnea/CPAP/BIPAP Additional Past Medical History / Comment(s): uses CPAP, past hx. of a-fib; esophageal stricture, esophageal cancer- radiation completed 05/18/18, gout History of Any Multi-Drug Resistant Organisms: None Reported Past Surgical History: Joint Replacement Additional Past Surgical History / Comment(s): total L knee arthroplasty; nasal surg., colonoscopies, vein surg. right leg Past Anesthesia/Blood Transfusion Reactions: Previous Problems w/ Anesthesia Additional Past Anesthesia/Blood Transfusion Reaction / Comment(s): Woke up during knee surg & colonoscopy Past Psychological History: No Psychological Hx Reported Smoking Status: Former smoker Past Alcohol Use History: None Reported Past Drug Use History: None Reported - Past Family History Father Family Medical History: Cancer Additional Family Medical History / Comment(s): Skin cancer to ear. Brother(s) Family Medical History: Cancer, Deep Vein Thrombosis (DVT) Additional Family Medical History / Comment(s): 1 brother with esophageal CA; 1 brother with CA to " veins of heart" and DVTs. Mother Family Medical History: Dementia Additional Family Medical History / Comment(s): Mother at the age of 87yrs. General Exam Limitations: no limitations General appearance: alert, in no apparent distress, other (This is a well- developed, well-nourished elderly male patient in no acute distress. Vital signs upon presentation are temperature 97.7F, pulse 108, respirations 18, blood pressure 134/82, pulse ox 95% on room air.) Eye exam: Present: normal appearance, PERRL, EOMI. Absent: scleral icterus, conjunctival injection, periorbital swelling ENT exam: Present: normal exam, normal oropharynx, mucous membranes moist Respiratory exam: Present: normal lung sounds bilaterally. Absent: respiratory distress, wheezes, rales, rhonchi, stridor Cardiovascular Exam: Present: regular rate, normal rhythm, normal heart sounds. Absent: systolic murmur, diastolic murmur, rubs, gallop, clicks GI/Abdominal exam: Present: soft, normal bowel sounds. Absent: distended, tenderness, guarding, rebound, rigid Rectal exam: Present: hemorrhoids (3 large hemorrhoids, erythematous but no evidence of thrombosis.) Neurological exam: Present: alert, oriented X3, CN II-XII intact Psychiatric exam: Present: normal affect, normal mood Skin exam: Present: warm, dry, intact, normal color. 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 Patient states he has been having small hard bowel movement over the last several days. He denies any abdominal pain, nausea, or vomiting. States he can feel the stool in his rectum but he cannot get it out. Physical examination did reveal 3 large hemorrhoids with some evidence of bleeding but no evidence of thrombosis. I did perform rectal examination did reveal a stool ball in the rectum but was unable to disimpact him. He was given a milk of molasses enema did have a large bowel movement. Patient states he is feeling much better. He'll be discharged home with Proctofoam for hemorrhoid symptom management. He is instructed regarding sitz baths. Instructed to follow-up with his primary care physician for recheck in 1-2 days. Return parameters discussed in detail. He verbalizes understanding and agrees this plan. Disposition Clinical Impression: Constipation, Hemorrhoids Disposition: HOME SELF-CARE Condition: Good Instructions: Constipation (ED), Hemorrhoids (ED) Additional Instructions: Do warm sitz baths to aid with hemorrhoid discomfort (Fill tub with a few inches of hot water, sit for a short period). Use hemorrhoid cream as needed. Increase fluids and fiber in the diet. Follow up with your primary care physician for recheck in 1-2 days. Return here immediately for any new, worsening, or concerning symptoms. Prescriptions: Hydrocortisone/Pramoxine [Proctofoam-Hc 1%-1% Foam] 1 applic RECTAL BID #1 bottle Is patient prescribed a controlled substance at d/c from ED?: No Referrals: Jim Orozco DO [Primary Care Provider] - 1-2 days Time of Disposition: 03:53
[2018-06-01 03:56] VITALS: BP 142/98; PULSE 80; RESP 16; TEMP 98
== END 2018-06-01 04:05 | disposition home or self-care (01) ==
LOC: EC 01:55
DX: K59.00 Constipation, unspecified (principal); K64.9 Unspecified hemorrhoids; C15.9 Malignant neoplasm of esophagus, unspecified; E11.9 Type 2 diabetes mellitus without complications; I10 Essential (primary) hypertension; G47.30 Sleep apnea, unspecified; I48.91 Unspecified atrial fibrillation; Z79.82 Long term (current) use of aspirin; Z79.4 Long term (current) use of insulin; Z79.899 Other long term (current) drug therapy; Z87.891 Personal history of nicotine dependence
CPT/HCPCS: 99283

== ENCOUNTER 2018-06-22 13:40 | Day surgery (SDC) | payer MEDICARE, OTHER ==
[2018-06-22 14:10] VITALS: BP 142/84; PULSE 88; RESP 16; TEMP 98
--- NOTE | 2018-06-22 16:35 | IR ---
Port-A-Cath check HISTORY: Malfunctioning Port-A-Cath 0.1 minutes fluoroscopy time, 141 intraoperative images obtained. Correlation to prior chest x-ray 05/30/2018 Real-time fluoroscopy shows that the Port-A-Cath port in the right pectoral region shows a loop in th e neck, distal tip of the catheter is within the soft tissues rather than within the region of the tracey perior vena cava. IMPRESSION: Port-A-Cath tip is no longer present overlying the superior vena cava. A Yellow level critical message alert has been initiated for Shannon Fernandez via the [employer] Critical Results System on 06/22/2018 4:33 PM. This message alert has been sent to Shannon Fernandez via the preferences provided by the clinician for the receipt of Radiology Critical Findings. Message ID [id number].
== END 2018-06-22 15:50 | disposition home or self-care (01) ==
LOC: CATHCVL 13:40
PROVIDERS: ATTEND Radiology Diagnostic Radiology
DX: T82.514A Breakdown (mechanical) of infusion catheter, initial encounter (principal); C15.5 Malignant neoplasm of lower third of esophagus; E11.9 Type 2 diabetes mellitus without complications; I10 Essential (primary) hypertension; I48.91 Unspecified atrial fibrillation; E66.9 Obesity, unspecified; Z68.42 Body mass index [BMI] 45.0-49.9, adult; Z79.4 Long term (current) use of insulin; Z79.899 Other long term (current) drug therapy; Z87.891 Personal history of nicotine dependence
CPT/HCPCS: 36598

== ENCOUNTER → 2018-07-06 | Day surgery (SDC) | payer MEDICARE, OTHER ==
[2018-06-30 11:23] VITALS: BMI 48.7
--- NOTE | 2018-07-05 22:54 | P.GSHP ---
History of Present Illness H&P Date: 07/06/18 CHIEF COMPLAINT: Esophageal cancer HISTORY OF PRESENT ILLNESS: The patient is a 67-year-old male diagnosed with esophageal cancer. He had a Mediport placement over a month ago now with malfunction requiring replacement. PAST MEDICAL HISTORY: See list PAST SURGICAL HISTORY: See list CURRENT MEDICATIONS: See list. ALLERGIES: See list. SOCIAL HISTORY: No active tobacco or alcohol use. FAMILY HISTORY: Noncontributory. REVIEW OF ORGAN SYSTEMS: CONSTITUTIONAL: Has weight loss. PHYSICAL EXAMINATION: Vital signs: Stable GENERAL: Well developed and in no acute distress. Pleasant. HEENT: No sclera icterus. Extraocular movements grossly intact. Moist buccal mucosa. Head is atraumatic, normocephalic. Hears conversational speech. No nasal drainage. NECK: Supple without lymphadenopathy. No JV distention. CHEST: Non-labored respirations and equal bilateral excursions. Port along right chest wall CARDIOVASCULAR: Regular rate and rhythm. Palpable 2+ radial pulses. ABDOMEN: Nontender. MUSCULOSKELETAL: No clubbing, cyanosis or edema. NEUROLOGIC: No focal or lateralizing signs. PSYCH: Appropriate affect. Alert and oriented to person, place and time. ASSESSMENT: 1. Esophageal cancer 2. Need for chemotherapeutic access. PLAN: 1. Agree with revision/replacement of Port-A-Cath Past Medical History Past Medical History: Atrial Fibrillation, Cancer, Diabetes Mellitus, Hypertension, Sleep Apnea/CPAP/BIPAP Additional Past Medical History / Comment(s): LAST CHEMO 06/23/18, WAS SECOND DOSE (DID NOT USE PORT A CATH THAT DAY) uses CPAP, past hx. of a-fib; esophageal stricture, esophageal cancer- radiation completed 05/18/18, gout History of Any Multi-Drug Resistant Organisms: None Reported Past Surgical History: Joint Replacement Additional Past Surgical History / Comment(s): total L knee arthroplasty; nasal surg., colonoscopies, vein surg. right leg, PORT A CATH Past Anesthesia/Blood Transfusion Reactions: Previous Problems w/ Anesthesia Additional Past Anesthesia/Blood Transfusion Reaction / Comment(s): Woke up during knee surg & colonoscopy Smoking Status: Former smoker - Past Family History Father Family Medical History: Cancer Additional Family Medical History / Comment(s): Skin cancer to ear. Brother(s) Family Medical History: Cancer, Deep Vein Thrombosis (DVT) Additional Family Medical History / Comment(s): 1 brother with esophageal CA; 1 brother with CA to " veins of heart" and DVTs. Mother Family Medical History: Dementia Additional Family Medical History / Comment(s): Mother at the age of 87yrs. Medications and Allergies Home Medications Medication Instructions Recorded Confirmed Type Insulin Glargine [Lantus] 60 unit SQ QAM 09/03/16 06/30/18 History Lisinopril [Zestril] 10 mg PO HS 09/03/16 06/30/18 History Metoprolol/Hydrochlorothiazide 0.5 tab PO QAM 09/03/16 06/30/18 History [Lopressor Hct 50-25 mg Tab] Potassium Chloride [Klor-Con 20] 20 meq PO DAILY 09/03/16 06/30/18 History Indomethacin [Indocin] 50 mg PO TID PRN 05/26/18 06/30/18 History Lidocaine Viscous 2% [Xylocaine 1 dose MUCOUS MEM ACHS 05/26/18 06/30/18 History Viscous] Loratadine [Claritin] 10 mg PO DAILY 05/30/18 06/30/18 History Ondansetron HCl [Zofran] 8 mg PO Q8HR PRN 05/30/18 06/30/18 History Ranitidine HCl [Zantac] 150 mg PO BID 05/30/18 06/30/18 History Acetaminophen/Diphenhydramine 2 each PO DAILY PRN 06/22/18 06/30/18 History [Tylenol PM 500-25mg] Hydrocortisone/Pramoxine 1 applic RECTAL BID PRN 06/30/18 06/30/18 History [Proctofoam-Hc 1%-1% Foam] Allergies Allergy/AdvReac Type Severity Reaction Status Date / Time No Known Allergies Allergy Verified 06/30/18 11:18
[~2018-07-06] MED LIST changes: +BUPIVACAIN-EPI 0.25%-1:200,000 30 ML VIAL SQ ONE; -DEXAMETHASONE SOD PHOSPHATE 10 MG/ML 1 ML VIAL IV ONE; +LIDOCAINE 1% 20 ML VIAL (10MG/ML) FOR IV START INTRADERMA ONE; -LIDOCAINE 1% 20 ML VIAL (10MG/ML) FOR IV START INTRADERMA PRN; -MIDAZOLAM 2 MG/2 ML VIAL IV PRN; +MIDAZOLAM 2 MG/2 ML VIAL ONE; +MORPHINE SULFATE 4 MG/ML SYRINGE IV PRN; -ONDANSETRON 4 MG/2 ML VIAL IVP ONE; +ONDANSETRON 4 MG/2 ML VIAL IVP PRN; +ONDANSETRON 4 MG/2 ML VIAL ONE; +PROPOFOL 10 MG/ML 20 ML VIAL IV ONE; +ceFAZolin 3 GM in SODIUM CHLORIDE 0.9% 100 ML IVPB ONE; -fentaNYL (PF) 50 MCG/ML 2 ML AMP IV PRN; +fentaNYL (PF) 50 MCG/ML 2 ML AMP ONE
[2018-07-06 13:04] LABS: Glucose,Whole Blood 137 mg/dL (75-99)
--- NOTE | 2018-07-06 15:23 | FL ---
Fluoroscopy HISTORY: Port-A-Cath placement 20 seconds fluoroscopy time supplied to the referring clinician. 2 intraoperative C-arm images docum ent the procedure. See dictated report from general surgery.
[2018-07-06 15:26] VITALS: TEMP 97.6
--- NOTE | 2018-07-06 15:32 | P.PCN ---
Date of Procedure: 07/06/18 Description of Procedure: SURGEON: SHANNON PRESLEY MD PROPERTY MANAGEMENT INTERN: None. PREOPERATIVE DIAGNOSES: 1. Esophageal cancer 2. Need for chemotherapeutic access. 3. Morbid obesity due to excess calories, BMI 48.8 4. Mediport malfunction vascular device 5. Obstructive sleep apnea. 6. Hypertensive heart disease POSTOPERATIVE DIAGNOSES: 1. Esophageal cancer 2. Need for chemotherapeutic access. 3. Morbid obesity due to excess calories, BMI 48.8 4. Mediport malfunction vascular device 5. Obstructive sleep apnea. 6. Hypertensive heart disease PROCEDURES PERFORMED: 1. Ultrasound guided central venous access of the right internal jugular and subclavian vein. 2. Fluoroscopic guidance for central venous access right internal jugular vein and subclavian vein 20 seconds. 3. Placement of right subclavian vein power port 6 Georgian by imbookin (Pogby), Xcela Plus Port ANESTHESIA: IV sedation with local. ESTIMATED BLOOD LOSS: 20 mL. SPECIMENS REMOVED: None. COMPLICATIONS: None. INDICATIONS: The patient is a 67-year-old male diagnosed with esophageal cancer He presents for chemotherapeutic access. Benefits and risks of surgical intervention were described including bleeding, infection, mechanical problems with his port. Informed consent was obtained. DESCRIPTION OR PROCEDURE: Patient was brought into the operating room, laid in supine position. After adequate IV sedation, the chest and right neck were prepped and draped in a standard sterile fashion including the shoulder with ChloraPrep. Timeout protocol was confirmed with the surgical team regarding the patient's name, procedure to be performed including preoperative medications for which she received IV antibiotics. Bilateral SCDs were placed. An ultrasound was used to capture views of the right internal jugular vein including right carotid artery, which was patent and without thrombus along its course. The right IJ was then localized using anesthetic for the skin. A 16 Georgian needle was used to access the IJ. The right internal jugular vein was easily accessed with nonpulsatile dark venous blood. A guidewire was advanced into the IJ with dark nonpulsatile venous blood, however obstruction was confirmed at the base of the neck. Secondary to the patient's extreme body habitus with thick chest wall as well as very short thick neck, access to the superior venous cava was obstructed despite adjusting the chin toward the left side. Multiple maneuvers to advance the guidewire was performed however, an internal jugular venous access was abandoned as no successful advancement of the guidewire was obtained. The pocket overlying the previous Mediport was localized and incised using a # 11 blade. The previous port was removed. Next, attention was brought to the right subclavian vein access at the medial mid-third of the clavicle. The skin was localized. A 16-gauge needle was used to access the right subclavian vein after 3 tries. Nonpulsatile dark venous blood was obtained. A guidewire was advanced along the subclavian vein into the superior vena cava and confirmed using fluoroscopy. The port on the back table was flushed with heparinized saline and then attached to the catheter tubing. An adapter was fastened to the actual port site over the tubing. The port easily had fit snug into the pocket. A subcutaneous tunneler was placed along the open end of the tubing and brought out through the separate stab incision. Fluoroscopic guidance confirmed no kinking along the tubing and the port site. Next, the J-wire was exchanged for a catheter sheath for which the tubing was cut to 20 cm and then advanced through the catheter sheath. The Peel-away sheath was then removed and the tubing was secured at the junction of the superior vena cava as well as the right atrium. Total fluoroscopic guidance is 20 seconds. Venous pullback as well as return and aspiration was obtained of the port site. The skin incision was closed using layers using 3-0 Vicryl for the subcu followed by 4-0 Monocryl in a running subcuticular fashion. At the stick site this was also reapproximated using 4-0 Monocryl. The skin was cleansed and Exofin liquid glue was applied. Local anesthetic was placed. At the end of the procedure, needle, sponge, and instrument count was verified correct by rn medical surgical. Heparin lock of 5 mL was placed. The patient was awoken and pain free and taken to the second stage postanesthesia care unit. The patient tolerated the procedure well. FINDINGS: 1. Difficulty in placing the right IJ limited via the patient's chest body habitus including short thick neck. 2. Right subclavian vein port basement confirmed with fluoroscopy 3. Fluoroscopy of 30 seconds. 4. Pullback and venous return confirmed upon skin closure of Port-A-Cath. 5. Patient's family made aware of difficulty placing port and alternatives should any future Mediport malfunction occur. Plan - Discharge Summary New Discharge Prescriptions: New HYDROcodone/APAP 5-325MG [[place] 5-325] 1 tab PO Q6HR PRN 3 Days #12 tab PRN Reason: Pain No Action Potassium Chloride [Klor-Con 20] 20 meq PO DAILY Lisinopril [Zestril] 10 mg PO HS Metoprolol/Hydrochlorothiazide [Lopressor Hct 50-25 mg Tab] 0.5 tab PO QAM Insulin Glargine [Lantus] 60 unit SQ QAM Indomethacin [Indocin] 50 mg PO TID PRN PRN Reason: GOUT Lidocaine Viscous 2% [Xylocaine Viscous] 1 dose MUCOUS MEM ACHS Ranitidine HCl [Zantac] 150 mg PO BID Ondansetron HCl [Zofran] 8 mg PO Q8HR PRN PRN Reason: Nausea Loratadine [Claritin] 10 mg PO DAILY Acetaminophen/Diphenhydramine [Tylenol PM 500-25mg] 2 each PO DAILY PRN PRN Reason: Mild To Moderate Pain Hydrocortisone/Pramoxine [Proctofoam-Hc 1%-1% Foam] 1 applic RECTAL BID PRN PRN Reason: HEMMOROIDS Discharge Medication List Insulin Glargine [Lantus] 60 unit SQ QAM 09/03/16 [History] Lisinopril [Zestril] 10 mg PO HS 09/03/16 [History] Metoprolol/Hydrochlorothiazide [Lopressor Hct 50-25 mg Tab] 0.5 tab PO QAM 09/03 [History] Potassium Chloride [Klor-Con 20] 20 meq PO DAILY 09/03/16 [History] Indomethacin [Indocin] 50 mg PO TID PRN 05/26/18 [History] Lidocaine Viscous 2% [Xylocaine Viscous] 1 dose MUCOUS MEM ACHS 05/26/18 [ History] Loratadine [Claritin] 10 mg PO DAILY 05/30/18 [History] Ondansetron HCl [Zofran] 8 mg PO Q8HR PRN 05/30/18 [History] Ranitidine HCl [Zantac] 150 mg PO BID 05/30/18 [History] Acetaminophen/Diphenhydramine [Tylenol PM 500-25mg] 2 each PO DAILY PRN [History] Hydrocortisone/Pramoxine [Proctofoam-Hc 1%-1% Foam] 1 applic RECTAL BID PRN [History] HYDROcodone/APAP 5-325MG [[place] 5-325] 1 tab PO Q6HR PRN 3 Days #12 tab [Rx] Follow up Appointment(s)/Referral(s): Shannon Presley MD [STAFF PHYSICIAN] - 1 Week Patient Instructions/Handouts: Implanted Venous Access Port (DC) Activity/Diet/Wound Care/Special Instructions: No lifting over 10 pounds of the right arm for 2 weeks. May shower tomorrow. Sleep upright in recliner for 2 days. Discharge Disposition: HOME SELF-CARE
[2018-07-06 15:33] LABS: Glucose,Whole Blood 120 mg/dL (75-99)
--- NOTE | 2018-07-06 15:50 | XR ---
EXAMINATION TYPE: XR chest 1V confirm line [facility] DATE OF EXAM: 07/06/2018 COMPARISON: Prior chest 05/30/2018 HISTORY: Port placement TECHNIQUE: Single frontal view of the chest is obtained. FINDINGS: Right-sided Port-A-Cath has been placed in the interval finding the subclavian approach. T here may be a kink within the catheter. There is been interval removal of the right internal jugular port. Distal tip of the catheter is overlying the superior vena cava. No evident pneumothorax or pleu ral effusion. Patient is rotated. No other significant interval change. IMPRESSION: Port-A-Cath placement as described, correlate for function of catheter. Rotated apical l ordotic exam, follow-up as indicated.
[2018-07-06 16:48] VITALS: BP 105/67; PULSE 82; RESP 18
== END | disposition home or self-care (01) ==
LOC: OR 12:05
PROVIDERS: ATTEND Surgery Plastic and Reconstructive Surgery
DX: T82.594A Other mechanical complication of infusion catheter, initial encounter (principal); C15.9 Malignant neoplasm of esophagus, unspecified; E66.01 Morbid (severe) obesity due to excess calories; Z68.42 Body mass index [BMI] 45.0-49.9, adult; G47.33 Obstructive sleep apnea (adult) (pediatric); I11.9 Hypertensive heart disease without heart failure; I48.91 Unspecified atrial fibrillation; E11.9 Type 2 diabetes mellitus without complications; M10.9 Gout, unspecified; K21.9 Gastro-esophageal reflux disease without esophagitis; Z80.0 Family history of malignant neoplasm of digestive organs; Z96.652 Presence of left artificial knee joint; Z99.89 Dependence on other enabling machines and devices; Z79.4 Long term (current) use of insulin; Z79.899 Other long term (current) drug therapy; Z88.4 Allergy status to anesthetic agent; Z92.3 Personal history of irradiation; Z92.84 Personal history of unintended awareness under general anesthesia; Z87.891 Personal history of nicotine dependence
CPT/HCPCS: 77001; 36578; C1788; J2250; J0690; J2405; J3010; J1642; J2704

== ENCOUNTER → 2018-07-21 | Outpatient (CLI) | payer MEDICARE, OTHER ==
[2018-07-21 14:00] LABS: Blood Urea Nitrogen 26 mg/dL (9-20)
--- NOTE | 2018-07-22 08:53 | CT ---
EXAMINATION TYPE: CT ChestAbdPelvis w con DATE OF EXAM: 07/21/2018 COMPARISON: PET/CT dated 04/23/2018 HISTORY: Carcinoma of esophagus CT DLP: 3187.2 mGycm. Automated Exposure Control for Dose Reduction was Utilized. CONTRAST: CT scan of the thorax, abdomen and pelvis is performed with IV Contrast, patient injected with 100 mL of Isovue 300. FINDINGS: LUNGS: There is a new groundglass opacity within the peripheral right upper lobe anteriorly on image 14. This measures 3.4 cm in longest dimension.. A 2 mm right upper lobe pulmonary nodule is seen on i mage 30. A 3 mm pulmonary nodule in the right upper lobe is present on image 28. These are not seen o n the prior exam although this could relate to slice selection. A stable 2 mm pulmonary nodule in the right upper lobe is also present on image 31. New groundglass opacities in the subpleural location a re present in the right middle lobe such as on image 39 measuring 1.7 cm. Groundglass opacities at th e right lung base are also new. The elongated previously seen 6 mm pulmonary nodule within the superi or segment of the right lower lobe is stable on image 40. On the left there is a spiculated 7 mm new left basilar pulmonary nodule on image 54. Punctate benign left basilar granulomas are seen along the pleural surface at the lung bases. Volume averaging versu s an additional 2 mm pulmonary nodule is seen within the left lung apex on image 18. MEDIASTINUM: There are bilateral pulmonary emboli originating in the left main pulmonary artery and s egmental right pulmonary arteries. These are seen to all pulmonary lobes. The main pulmonary artery i s nonenlarged measuring 2.5 cm. There is no abnormal right ventricular to left ventricular ratio. No reflux of contrast into the inferior vena cava or hepatic veins. No evidence of right heart strain. H eart is not enlarged. No pericardial effusion. Paraesophageal lymph nodes are enlarged measuring 1.1 cm on the left on series 3 image 32 and 6 mm on the right. These are decreased in size from the prior as the larger measured 1.5 cm. LIVER/GB: No significant abnormality is appreciated. PANCREAS: No significant abnormality is seen. SPLEEN: No significant abnormality is seen. Small splenule is present adjacent to the augustine spleen. Spleen is mildly enlarged measuring 14.0 cm in craniocaudal dimension. Possible splenule are nonenlar ged lymph nodes seen superior to the augustine spleen. ADRENALS: No significant abnormality is seen. KIDNEYS: The kidneys enhance symmetrically without hydronephrosis BOWEL: At the known site of primary esophageal carcinoma there is circumferential mucosal thickening and luminal narrowing. This has decreased in conspicuity from the prior. No proximal dilatation to tracey ggest complete obstruction. There are few colonic diverticula. No dilated large or small bowel. LYMPH NODES: The previously seen 2.8 cm short axis portacaval lymph node now measures 1.2 cm. OSSEOUS STRUCTURES: Multilevel moderate to severe degenerative changes of the spine are seen. No new suspicious osseous lesion is appreciated. IMPRESSION: 1. Bilateral pulmonary emboli to the segmental and subsegmental arteries of each pulmonary lobe. No s econdary evidence of right heart strain. Findings were communicated with ordering physician at the ti me of dictation. 2. New multifocal groundglass opacities are concerning for pulmonary metastasis, especially at the pr imary known esophageal carcinoma is adenocarcinoma. Alternatively these could represent focal areas o f pneumonitis. If this finding would change treatment, percutaneous biopsy could be performed or shor t-term follow-up to evaluate for resolution or progression. 3. Improved appearance of the primary distal esophageal carcinoma and overall decrease in mediastinal and abdominal adenopathy.
== END | disposition home or self-care (01) ==
LOC: RADCTMAIN 12:58
PROVIDERS: ATTEND Internal Medicine Hematology & Oncology
DX: I26.99 Other pulmonary embolism without acute cor pulmonale (principal); R91.8 Other nonspecific abnormal finding of lung field; R59.1 Generalized enlarged lymph nodes
CPT/HCPCS: 82565; 84520; 71260; 74177; 36415; Q9967

== ENCOUNTER → 2018-08-11 | Outpatient (CLI) | payer MEDICARE, OTHER ==
--- NOTE | 2018-08-11 10:58 | US ---
EXAMINATION TYPE: US venous doppler duplex LE BI DATE OF EXAM: 08/11/2018 8:54 AM COMPARISON: NONE CLINICAL HISTORY: M79.662 Pain in left lower limb M79.661 Pain in Rt. Pt on chemotherapy for esophageal cancer 05/2018 ct showed PE pt on Xarelto for 3 weeks large body habitus 344 lbs SIDE PERFORMED: [place] TECHNIQUE: The lower extremity deep venous system is examined utilizing real time linear array sonog patrick with graded compression, doppler sonography and color-flow sonography. VESSELS IMAGED: External Iliac Vein (EIV) Common Femoral Vein Deep Femoral Vein Greater Saphenous Vein * Femoral Vein Popliteal Vein Small Saphenous Vein * Right Leg: Negative for DVT Left Leg: Negative for DVT Grayscale, color doppler, spectral doppler imaging performed of the deep veins of the bilateral lowe r extremities. There is normal flow, compressibility, vascular waveforms. IMPRESSION: No ultrasound evidence for acute DVT in either lower extremity.
== END | disposition home or self-care (01) ==
LOC: RADUSWWP 08:08
PROVIDERS: ATTEND Internal Medicine Hematology & Oncology
DX: M79.662 Pain in left lower leg (principal); M79.661 Pain in right lower leg; I26.99 Other pulmonary embolism without acute cor pulmonale
CPT/HCPCS: 93970

== ENCOUNTER → 2018-12-21 | Outpatient (CLI) | payer MEDICARE, OTHER ==
[2018-12-21 08:35] LABS: Blood Urea Nitrogen 18 mg/dL (9-20)
--- NOTE | 2018-12-21 10:36 | CT ---
EXAMINATION TYPE: CT ChestAbdPelvis w con DATE OF EXAM: 12/21/2018 COMPARISON: CT chest abdomen and pelvis July 21, 2018. PET/CT April 23, 2018 HISTORY: Esophageal Cancer diagnosed [address] DLP: 2760 mGycm. Automated Exposure Control for Dose Reduction was Utilized. CONTRAST: CT scan of the thorax, abdomen and pelvis is performed with oral and with IV Contrast, patient inject ed with 100 ml mL of Isovue 300. FINDINGS: Artifact related to patient's body habitus is noted making evaluation suboptimal particular ly in the abdomen. LUNGS: There is parenchymal scarring most prominent centrally in the bilateral lower lungs, left grea ter than right. Slightly more nodular irregular scarring or diaphragms remains present. There is new 6 mm right basilar nodule axial image 52 noted not clearly seen on prior. MEDIASTINUM: There is enlarging right paratracheal/pericarinal lymph node axial image 23 measuring 1. 7 x 1.1 cm current study. Subcarinal lymph node is enlarging also measuring 1.8 x 1 cm axial image [address] Left paraesophageal lymph node measuring 2.9 x 1.7 cm axial image 32 is increa sed in size from most recent CT. Additional lymph nodes anterior superior mediastinum axial image 16 are increased in size from most recent CT. No cardiomegaly or pericardial effusion is seen. Persiste nt suspicious focal thickening distal esophagus just above diaphragm axial image 47 likely reflecting residual primary tumor. OTHER: No additional significant abnormality is seen. LIVER/GB: No significant abnormality is appreciated. PANCREAS: No significant abnormality is seen. SPLEEN: No significant abnormality is seen. ADRENALS: No significant abnormality is seen. KIDNEYS: No significant abnormality is seen. BOWEL: Oral contrast does not reach colonic level. There is no suspicious small or large bowel dilata tion. Scattered diverticula left and sigmoid colon are identified. GENITAL ORGANS: No gross abnormality seen. LYMPH NODES: There is recurrent lymph node near vanessa hepatis axial image 63 measuring 2.2 x 1.9 cm i ncreased in size from most recent CT. Additional prominent lymph nodes near level of kidneys axial im age 70 appear more prominent from most recent CT. OSSEOUS STRUCTURES: There is scoliotic curvature with moderate to severe multilevel spurring. There i s transitional-type vertebra at lumbosacral junction. OTHER: No significant additional abnormality is seen. IMPRESSION: Interval disease progression from most recent CT after improvement from older PET/CT. Th ere is recurrent adenopathy in the thorax and abdomen noted. Nonspecific new right basilar 6 mm nodul e can be followed.
--- NOTE | 2018-12-22 10:00 | ECHOF ---
Referral Reason:C15.5 Carcinoma of esophagus MEASUREMENTS -------- HEIGHT: 180.3 cm WEIGHT: 154.7 kg BP: RVIDd: 3.4 cm (< 3.3) IVSd: 1.3 cm (0.6 - 1.1) LVIDd: 3.9 cm (3.9 - 5.3) LVPWd: 1.6 cm (0.6 - 1.1) IVSs: 1.9 cm LVIDs: 1.7 cm LVPWs: 2.1 cm LAESV Index (A-L): 26.45 ml/m Ao Diam: 3.1 cm (2.0 - 3.7) AV Cusp: 2.0 cm (1.5 - 2.6) LA Diam: 4.6 cm (2.7 - 3.8) EPSS: 0.6 cm MV E Marco: 0.87 m/s MV DecT: 207 ms MV A Marco: 1.04 m/s MV E/A Ratio: 0.84 RAP: 5.00 mmHg RVSP: 17.57 mmHg MV EF SLOPE: 88.84 mm/s (70 - 150) MV EXCURSION: 1.69 cm (> 18.000) FINDINGS -------- Sinus rhythm. This was a technically difficult study with suboptimal views. The left ventricular size is normal. There is mild concentric left ventricular hypertrophy. Overa ll left ventricular systolic function is normal with, an EF between 55 - 60 %. The right ventricle is mildly enlarged. The left atrial size is normal. The right atrial size is normal. XX ml of Lumason was utilized for enhancement of images. The aortic valve is trileaflet and appears structurally normal. There is trace mitral regurgitation. Trace tricuspid regurgitation present. Trace/mild (physiologic) pulmonic regurgitation. The aortic root size is normal. IVC Not well visulized. The pericardium is normal. CONCLUSIONS -------- 1. Sinus rhythm. 2. This was a technically difficult study with suboptimal views. 3. The left ventricular size is normal. 4. There is mild concentric left ventricular hypertrophy. 5. Overall left ventricular systolic function is normal with, an EF between 55 - 60 %. 6. The right ventricle is mildly enlarged. 7. The left atrial size is normal. 8. The right atrial size is normal. 9. XX ml of Lumason was utilized for enhancement of images. 10. The aortic valve is trileaflet and appears structurally normal. 11. There is trace mitral regurgitation. 12. Trace tricuspid regurgitation present. 13. Trace/mild (physiologic) pulmonic regurgitation. 14. The aortic root size is normal. 15. IVC Not well visulized. 16. The pericardium is normal. NANOTECHNICIAN: Leticia Phillips RDCS
== END | disposition home or self-care (01) ==
LOC: RADPROMAIN 07:48
PROVIDERS: ATTEND Internal Medicine Hematology & Oncology
DX: C15.5 Malignant neoplasm of lower third of esophagus (principal); R59.1 Generalized enlarged lymph nodes
CPT/HCPCS: 82565; 84520; 71260; 74177; C8929; J1642; Q9950; Q9967; 93306

== ENCOUNTER → 2019-02-08 | Outpatient (CLI) | payer MEDICARE, OTHER ==
--- NOTE | 2019-02-08 12:19 | XR ---
EXAMINATION TYPE: XR chest 2V DATE OF EXAM: 02/08/2019 COMPARISON: 07/06/2018 TECHNIQUE: PA and lateral views submitted. HISTORY: Esophageal cancer FINDINGS: The lungs are clear and there is no pneumothorax, pleural effusion, or focal pneumonia. Mediport se en with the tip overlying the SVC. Subsegmental consolidation left lung base. Arthropathy of the shou lders. Hypertrophic and degenerative changes of the spine. IMPRESSION: 1. Left-sided subsegmental consolidation is more typical of atelectasis or scar versus pneumonia. Cor relate clinically..
== END ==
LOC: RADXRMAIN 11:15
PROVIDERS: ATTEND Internal Medicine Hematology & Oncology
DX: J18.1 Lobar pneumonia, unspecified organism (principal); C15.5 Malignant neoplasm of lower third of esophagus; K21.9 Gastro-esophageal reflux disease without esophagitis; R53.0 Neoplastic (malignant) related fatigue; Z71.3 Dietary counseling and surveillance
CPT/HCPCS: 71046

== ENCOUNTER 2019-05-05 08:35 | Day surgery (SDC) | payer MEDICARE, OTHER ==
[2019-05-04 08:29] VITALS: BMI 45.4
[~2019-05-05 08:35] MED LIST changes: -BUPIVACAIN-EPI 0.25%-1:200,000 30 ML VIAL SQ ONE; -LIDOCAINE 1% 20 ML VIAL (10MG/ML) FOR IV START INTRADERMA ONE; -MIDAZOLAM 2 MG/2 ML VIAL ONE; -MORPHINE SULFATE 4 MG/ML SYRINGE IV PRN; -ONDANSETRON 4 MG/2 ML VIAL IVP PRN; -ONDANSETRON 4 MG/2 ML VIAL ONE; -PROPOFOL 10 MG/ML 20 ML VIAL IV ONE; -Pre Op ABX Message 1 EACH MISC MISCELLANE ONE; -ceFAZolin 3 GM in SODIUM CHLORIDE 0.9% 100 ML IVPB ONE; -fentaNYL (PF) 50 MCG/ML 2 ML AMP ONE
[2019-05-05 09:03] VITALS: RESP 16; TEMP 98.4
[2019-05-05] MEDS ORDERED: LIDOCAINE 1% 20 ML VIAL (10MG/ML) FOR IV START INTRADERMA ONE (09:11)
[2019-05-05 09:16] LABS: Glucose,Whole Blood 155 mg/dL (75-99)
[2019-05-05] MEDS ORDERED: LABETALOL 5 MG/ML VIAL MDV ONE (09:29)
[2019-05-05] MEDS ORDERED: PROPOFOL 10 MG/ML 20 ML VIAL IV ONE (09:29)
[2019-05-05] MEDS ORDERED: LIDOCAINE 1% INJ 10MG/ML (20 ML MDV) ONE (09:29)
--- NOTE | 2019-05-05 09:46 | P.PCN ---
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 He subsequently underwent chemoradiation for 12 weeks. He had recurrent about 2 months ago. He is on his second course of chemotherapy. He started developing severe dysphagia for the last 2 months and presently on clear liquids. His and scheduled for an upper endoscopy to evaluate further.. PROCEDURE PERFORMED: Esophagogastroduodenoscopy with biopsy. PREOPERATIVE DIAGNOSIS: Progressive dysphagia to solids of 2 months duration. IV sedation per anesthesia. PROCEDURE: After informed consent was obtained, the patient was brought into the endoscopy unit. IV sedation was administered by Anesthesia under continuous monitoring. Initially the Olympus GIF-140 video endoscope was inserted into the mouth. Esophagus intubated without any difficulty. It was gradually advanced into the distal esophagus and could not advance the scope any further. The scope was removed and a pediatric upper scope was then inserted into the mouth and esophagus intubated without any difficulty and was gently advanced into the distal esophagus. There was evidence of esophageal stricture noted. With gentle manipulation it was advanced the scope into the stomach and duodenum and carefully examined. The bulb and the second part of the duodenum appeared normal. The scope at this time was withdrawn to the stomach, adequately insufflated with air, and upon careful examination, mucosa of the antrum, body appeared normal. On retroflexion the fundus appeared normal however in the cardia of the stomach there WAS seen mucosal thickened folds with the appearance of recurrent neoplasm and multiple biopsies were done from this area. The scope was then withdrawn into the esophagus. The GE junction was located at 40 cm from the incisors. There were thickened esophageal mucosal folds with friable mucosa and ulcerations extending from 35-40 cm from the incisors suspicious for recurrent neoplasm and multiple biopsies were done from this area. The rest of the esophagus appeared normal. There were no erosions or ulcerations seen and the patient tolerated the procedure well. IMPRESSION: 1. Thickened mucosal folds with friability/ulceration involving the distal esophagus from 35-40 cm from the incisors causing esophageal stricture status post biopsies to evaluate for recurrent neoplasm 2.. Thickened mucosal folds involving the cardia of the stomach with no evidence of mass, suspicious for malignancy. RECOMMENDATIONS: The findings of this examination were discussed with the patient as well as his family. He was advised to follow with the biopsy results and follow with Dr. Lizz talbot.
[2019-05-05 10:12] VITALS: BP 123/80; PULSE 81
== END 2019-05-05 10:44 | disposition home or self-care (01) ==
LOC: ORWHC2ENDO 08:35
PROVIDERS: ATTEND Internal Medicine Gastroenterology
DX: C16.0 Malignant neoplasm of cardia (principal); K22.2 Esophageal obstruction; E78.5 Hyperlipidemia, unspecified; Z86.711 Personal history of pulmonary embolism; Z87.891 Personal history of nicotine dependence; I48.91 Unspecified atrial fibrillation; K21.9 Gastro-esophageal reflux disease without esophagitis; Z79.4 Long term (current) use of insulin; E11.9 Type 2 diabetes mellitus without complications; I10 Essential (primary) hypertension; G47.33 Obstructive sleep apnea (adult) (pediatric); Z79.899 Other long term (current) drug therapy; Z79.01 Long term (current) use of anticoagulants
CPT/HCPCS: 88305; 43239; J2001; J2704

== ENCOUNTER 2019-05-19 07:18 | Day surgery (SDC) | payer MEDICARE, OTHER ==
[2019-05-18 08:33] VITALS: BMI 44.0
[2019-05-19 07:36] VITALS: TEMP 98.2
[2019-05-19] MEDS ORDERED: LIDOCAINE 1% 20 ML VIAL (10MG/ML) FOR IV START INTRADERMA ONE (07:41)
[2019-05-19 07:46] LABS: Glucose,Whole Blood 141 mg/dL (75-99)
[2019-05-19] MEDS ORDERED: PROPOFOL 10 MG/ML 20 ML VIAL IV ONE (08:54)
[2019-05-19] MEDS ORDERED: LIDOCAINE 1% INJ 10MG/ML (20 ML MDV) ONE (08:54)
[2019-05-19] MEDS ORDERED: GLYCOPYRROLATE 0.2 MG/ML 2 ML VIAL ONE (08:54)
[2019-05-19] MEDS ORDERED: KETAMINE 10 MG/ML 20 ML VIAL ONE (08:54)
--- NOTE | 2019-05-19 09:46 | P.PCN ---
Date of Procedure: 05/19/19 Procedure(s) Performed: BRIEF HISTORY: Patient is a 68-year-old, pleasant, white male, with history of esophageal cancer diagnosed in April 2018. He developed dysphagia to solids for the last 2 months duration. An upper endoscopy done 2 weeks ago that showed a distal esophageal stricture with recurrent of esophageal cancer. His and scheduled for an upper endoscopy with Wallstent placement.. PROCEDURE PERFORMED: Esophagogastroduodenoscopy with metal wall stent placement. PREOPERATIVE DIAGNOSIS: Dysphagia secondary to distal distal esophageal strictures from recurrent esophageal adenocarcinoma. IV sedation per anesthesia. PROCEDURE: After informed consent was obtained, the patient was brought into the endoscopy unit. IV sedation was administered by Anesthesia under continuous monitoring. Initially the Olympus GIF-140 video endoscope was inserted into the mouth. Esophagus intubated without any difficulty. It was gradually advanced into the distal esophagus. There was a stricture with recurrent malignancy noted extending from 35-42 cm from the incisors. The scope was gently advanced into the stomach stomach and duodenum and carefully examined. The bulb and the second part of the duodenum appeared normal. The scope at this time was withdrawn to the stomach, adequately insufflated with air, and upon careful examination, mucosa of the antrum, body, cardia and the fundus appeared normal. The scope was then withdrawn into the esophagus. The GE junction was located at 42 cm from the incisors. There was esophageal mass with stricture extending up to 35 cm from the incisors. At this time a guidewire was passed through the scope into the stomach. Metal clips were placed under fluoroscopy in the proximal and distal margin of the strictures. The scope was then removed. The esophageal wall flex stent 12 cm 23 mm stent was gently passed over the guidewire into the stomach and gently was deployed under fluoroscopy without any difficulty. Repeat upper endoscopy was performed in the proximal stent was located at 28 cm from the incisors esophagus . The patient tolerated the procedure well. IMPRESSION: 1. Distal esophageal adenocarcinoma with tight stricture status post 12 cm 18 mm esophageal early, wall flex stent placement as described above. RECOMMENDATIONS: The findings of this examination were discussed with the patient as well as his family. He will remain on a dysphagia diet. He'll be seen in office as needed.
[2019-05-19] MEDS ORDERED: HYDROcodone/APAP 5-325MG 1 EACH TAB PO ONE (10:30)
--- NOTE | 2019-05-19 10:44 | FL ---
EXAMINATION TYPE: FL fluoroscopy <1hr DATE OF EXAM: 05/19/2019 COMPARISON: NONE HISTORY: Esophageal stent placement Fluoroscopy support supplied to the referring clinician. See dictated report from gastroenterology, 4 minutes 38 seconds fluoroscopy time supplied, single intraoperative image documents the procedure
[2019-05-19 10:59] VITALS: BP 142/90; PULSE 86; RESP 17
== END 2019-05-19 11:42 | disposition home or self-care (01) ==
LOC: ORWHC2ENDO 07:18
PROVIDERS: ATTEND Internal Medicine Gastroenterology
DX: K22.2 Esophageal obstruction (principal); C15.5 Malignant neoplasm of lower third of esophagus; I10 Essential (primary) hypertension; I48.91 Unspecified atrial fibrillation; E11.9 Type 2 diabetes mellitus without complications; K21.9 Gastro-esophageal reflux disease without esophagitis; Z79.4 Long term (current) use of insulin; Z79.01 Long term (current) use of anticoagulants; Z79.1 Long term (current) use of non-steroidal anti-inflammatories (NSAID); Z79.899 Other long term (current) drug therapy; Z96.652 Presence of left artificial knee joint; Z88.4 Allergy status to anesthetic agent
CPT/HCPCS: 43266; 76000; J2001; J2704

== ENCOUNTER → 2019-06-28 | Outpatient (CLI) | payer MEDICARE, OTHER ==
--- NOTE | 2019-06-28 10:10 | XR ---
EXAMINATION TYPE: XR chest 2V DATE OF EXAM: 06/28/2019 COMPARISON: 02/08/2019 TECHNIQUE: PA and lateral views submitted. HISTORY: Shortness of breath FINDINGS: Mediport catheter seen and there is a new left lower lobe infiltrate and small effusion. Heart size s table. Hypertrophic and degenerative change of the spine. Arthropathy of the shoulders. No pneumothor ax or interstitial edema. IMPRESSION: 1. Left lower lobe infiltrate and small pleural effusion.
== END | disposition home or self-care (01) ==
LOC: RADXRMAIN 09:50
PROVIDERS: ATTEND Internal Medicine Hematology & Oncology
DX: J90 Pleural effusion, not elsewhere classified (principal); R91.8 Other nonspecific abnormal finding of lung field; C15.5 Malignant neoplasm of lower third of esophagus; Z71.3 Dietary counseling and surveillance
CPT/HCPCS: 71046

== ENCOUNTER → 2019-07-13 | Outpatient (CLI) | payer MEDICARE, OTHER ==
--- NOTE | 2019-07-13 15:26 | XR ---
EXAMINATION TYPE: XR chest 2V DATE OF EXAM: 07/13/2019 COMPARISON: 06/28/2019 TECHNIQUE: PA and lateral views submitted. HISTORY: Follow-up abnormal x-ray, pneumonia FINDINGS: There is stable persistent left lower lobe infiltrate and small effusion. Tiny right pleural effusion noted. Arthropathy of the shoulders. Mediport catheter stable. No overt failure. Heart size stable. Hypertrophic and degenerative change of the spine. Suggestion of esophageal stent. IMPRESSION: 1. Left lower lobe infiltrate and small bilateral pleural effusion stable.
== END | disposition home or self-care (01) ==
LOC: RADXRMAIN 14:54
PROVIDERS: ATTEND Nurse Practitioner Adult Health
DX: C15.5 Malignant neoplasm of lower third of esophagus (principal); R91.8 Other nonspecific abnormal finding of lung field; J90 Pleural effusion, not elsewhere classified; R53.0 Neoplastic (malignant) related fatigue; K21.9 Gastro-esophageal reflux disease without esophagitis; Z71.3 Dietary counseling and surveillance
CPT/HCPCS: 71046

== ENCOUNTER → 2019-07-18 | Outpatient (CLI) | payer MEDICARE, OTHER ==
--- NOTE | 2019-07-18 19:33 | ECHOF ---
Referral Reason:Z01.818 pre chemo MEASUREMENTS -------- HEIGHT: 180.3 cm WEIGHT: 136.1 kg BP: 114/86 RVIDd: 3.8 cm (< 3.3) IVSd: 1.4 cm (0.6 - 1.1) LVIDd: 3.7 cm (3.9 - 5.3) LVPWd: 1.4 cm (0.6 - 1.1) IVSs: 1.8 cm LVIDs: 2.4 cm LVPWs: 1.5 cm LA Diam: 3.1 cm (2.7 - 3.8) LAESV Index (A-L): 15.11 ml/m Ao Diam: 3.2 cm (2.0 - 3.7) AV Cusp: 2.2 cm (1.5 - 2.6) MV EXCURSION: 15.965 mm (> 18.000) MV EF SLOPE: 26 mm/s (70 - 150) EPSS: 0.6 cm MV E Marco: 0.72 m/s MV DecT: 289 ms MV A Marco: 0.81 m/s MV E/A Ratio: 0.89 FINDINGS -------- Sinus rhythm. This was a technically difficult study with suboptimal apical views. The left ventricular size is normal. There is moderate concentric left ventricular hypertrophy. O verall left ventricular systolic function is normal with, an EF between 60 - 65 %. The diastolic fi lling pattern is normal for the age of the patient 8.73. The right ventricle is mild to moderately enlarged. Normal LA size by volume 22+/-6 ml/m2. The right atrium is normal in size. 4 ml of Lumason was utilized for enhancement of images. Interatrial and interventricular septum intact. Aortic valve is trileaflet and is mildly thickened. The mitral valve is normal. The tricuspid valve appears structurally normal. Trace/mild (physiologic) pulmonic regurgitation. The aortic root size is normal. IVC Not well visulized. There is no pericardial effusion. CONCLUSIONS -------- 1. Sinus rhythm. 2. This was a technically difficult study with suboptimal apical views. 3. The left ventricular size is normal. 4. There is moderate concentric left ventricular hypertrophy. 5. Overall left ventricular systolic function is normal with, an EF between 60 - 65 %. 6. The diastolic filling pattern is normal for the age of the patient 8.73 7. The right ventricle is mild to moderately enlarged. 8. Normal LA size by volume 22+/-6 ml/m2. 9. The right atrium is normal in size. 10. 4 ml of Lumason was utilized for enhancement of images. 11. Interatrial and interventricular septum intact. 12. Aortic valve is trileaflet and is mildly thickened. 13. The mitral valve is normal. 14. The tricuspid valve appears structurally normal. 15. Trace/mild (physiologic) pulmonic regurgitation. 16. The aortic root size is normal. 17. IVC Not well visulized. 18. There is no pericardial effusion. CORPORATE ETHICS OFFICER: Anna Mullins RDCS
== END | disposition home or self-care (01) ==
LOC: RADECHMAIN 13:35
PROVIDERS: ATTEND Internal Medicine Hematology & Oncology
DX: Z01.818 Encounter for other preprocedural examination (principal); I37.1 Nonrheumatic pulmonary valve insufficiency; I51.7 Cardiomegaly
CPT/HCPCS: C8929; Q9950; 93306

== ENCOUNTER → 2019-08-02 | Outpatient (CLI) | payer MEDICARE, OTHER ==
--- NOTE | 2019-08-02 12:28 | XR ---
EXAMINATION TYPE: XR chest 2V DATE OF EXAM: 08/02/2019 COMPARISON: 07/13/2019 TECHNIQUE: PA and lateral views submitted. HISTORY: Weakness FINDINGS: Bilateral lower lobe consolidation small effusion greater on the left stable. Mediport catheter and e sophageal stent noted. No overt failure or pneumothorax. Arthropathy of the shoulders. Hypertrophic a nd degenerative changes of the spine. IMPRESSION: 1. Bilateral infiltrate and small effusion greater on the left stable.
== END | disposition home or self-care (01) ==
LOC: RADXRMAIN 10:37
PROVIDERS: ATTEND Internal Medicine Hematology & Oncology
DX: J90 Pleural effusion, not elsewhere classified (principal); R91.8 Other nonspecific abnormal finding of lung field; C15.5 Malignant neoplasm of lower third of esophagus; Z71.3 Dietary counseling and surveillance
CPT/HCPCS: 71046

== ENCOUNTER → 2019-09-06 | Outpatient (CLI) | payer MEDICARE, OTHER ==
[2019-09-06 11:07] LABS: African American GFR (CKD) >90 (>60 ml/min/1.73 sqM); Blood Urea Nitrogen 17 mg/dL (9-20); Non-African American GFR(CKD) >90 (>60 ml/min/1.73 sqM)
--- NOTE | 2019-09-06 12:53 | CT ---
EXAMINATION TYPE: CT ChestAbdPelvis w con DATE OF EXAM: 09/06/2019 COMPARISON: 12/21/2018 HISTORY: Esophageal CA CT DLP: 2953.8 mGycm CONTRAST: CT scan of the chest, abdomen and pelvis is performed with Oral Contrast and with IV Contrast, patien t injected with 100 mL of Isovue 300. CT Chest: LUNGS: The lungs are clear and free of infiltrate or atelectasis. No pulmonary nodule or mass is det ected. Small bilateral pleural effusions and basilar atelectasis noted. MEDIASTINUM: There is esophageal thickening noted with stent identified to be in place. At the proxim al component of the stent there is intraluminal soft tissue mass identified which may be resulting in obstruction. Correlate clinically. Findings are consistent with the provided history of esophageal m alignancy. Left tracheobronchial adenopathy measuring 1.8 cm. HILAR STRUCTURES: No evidence for mass. No hilar adenopathy is appreciated. OTHER: No significant abnormality. CONTRAST CT ABDOMEN AND PELVIS FINDINGS: LIVER/GB: No calcified gallstones. Hypoattenuating lesion within the inferior tip of the right hepa tic lobe measures 2.7 cm and is compatible metastatic lesion. Biliary tree is of normal caliber. PANCREAS: No inflammation. No distinct mass. SPLEEN: No splenic enlargement. No lesion seen. ADRENALS: No nodule. No thickening. KIDNEYS/BLADDER: No hydronephrosis. No nephrolithiasis. No disctinct renal mass. BOWEL: Normal appendix. Normal bowel caliber. No inflammation. GENITAL ORGANS: No gross abnormality. LYMPH NODES: No greater than 1cm abdominal or pelvic lymph nodes are appreciated. AORTA: No significant abnormality. OSSEOUS STRUCTURES: No significant abnormality is seen. OTHER: Interval development of upper abdominal ascites and to a lesser extent within the pelvis. Ther e is omental nodularity noted compatible with metastatic disease. IMPRESSION: 1. Progressive esophageal wall thickening with extension into the gastric cardia consistent with the provided history of esophageal carcinoma. Interval placement of an esophageal stent however at the pr oximal component of the stent there is filling with soft tissue mass. This may result in esophageal o bstruction at this level. Correlate clinically. 2. Metastatic lesion to the liver. 3. Omental thickening and pleural effusion suspicious for omental metastatic disease.
== END | disposition home or self-care (01) ==
LOC: RADPROMAIN 10:16
PROVIDERS: ATTEND Internal Medicine Hematology & Oncology
DX: C15.5 Malignant neoplasm of lower third of esophagus (principal); K22.8 Other specified diseases of esophagus; J90 Pleural effusion, not elsewhere classified; C78.7 Secondary malignant neoplasm of liver and intrahepatic bile duct; Z96.89 Presence of other specified functional implants
CPT/HCPCS: 82565; 84520; 71260; 74177; J1642; Q9967 ×2

== ENCOUNTER 2019-10-12 22:30 | Inpatient (IN) | payer MEDICAID ==
[2019-10-12] MEDS ORDERED: ONDANSETRON 4 MG/2 ML VIAL IVP PRN (22:34)
[2019-10-13 01:20] VITALS: BP 105/72; TEMP 97.6
[2019-10-13] MEDS: MORPHINE SULFATE (100 MG/2 ML) 100 MG in SODIUM CHLORIDE 0.9% 100 ML IV SCH (01:26)
[2019-10-13] MEDS ORDERED: chlorproMAZINE 25 MG/ML 2 ML AMP IM PRN (02:00)
[2019-10-13] MEDS ORDERED: ACETAMINOPHEN SUPPOSITORY 650 MG SUPP RECTAL PRN (04:00)
[2019-10-13 05:25] VITALS: PULSE 109
[2019-10-13] MEDS: SCOPOLAMINE 1.5MG/72HR PATCH TRANSDERM SCH (06:11)
[2019-10-13] MEDS: MORPHINE SULFATE 2 MG/ML SYRINGE IV PRN ×2 (09:07→16:32)
[2019-10-13] MEDS: LORazepam 2 MG/ML INJ IV PRN (14:49)
[2019-10-14] MEDS: LORazepam 2 MG/ML INJ IV PRN ×3 (00:07→18:15)
--- NOTE | 2019-10-14 00:29 | P.HPIM ---
History of Present Illness H&P Date: 10/13/19 Chief Complaint: Difficulty swallowing and hiccups Presenting complaint: Hiccups History of presenting complaint: This is a patient advanced esophageal cancer. Has been about hospice at home. Symptoms have been progressively getting worse. not able to eat at all. Not ta lucila any fluids. Patient is getting covered measures at home. Patient started having progressive stacking of hiccups. Finding it difficult to breathe. Hospice nurse to [facility] called me last night to admit the patient directly. This is a symptom management under GIP. Patient started on a morphine drip. Patient's family members including her daughter and son-in-law the bedside. Patient himself is rather lethargic. Admitting review of systems cannot be done as patient rather lethargic Physical examination: VITAL SIGNS: 97.6, 117, 18, 105/72, 92% room air GENERAL: [Average built, laying recliner lethargic]. EYES: [Pupils equal. Conjunctiva pale]l. HEENT: [External appearance of nose and ears normal, oral cavity dry]. NECK: [JVD not raised; masses not palpable]. HEART: [First and second heart sounds are normal; some edema]. LUNGS:[ Respiratory rate increased clear to auscultation]. ABDOMEN: [Soft, nontender, liver spleen not palpable, no masses palpable]. PSYCH: [Patient lethargic]l. NEUROLOGICAL: [Cranial nerves grossly intact; no facial asymmetry, No investigations Assessment: - Advancing esophageal cancer progressive end-stage -Recurrent hiccups intractable uncontrolled . -GIP Plan: Comfort care is in place. Including morphine drip. This is being titrated to comfort. Care was discussed with the patient's family the bedside. Questions were answered. Patient is being followed by [facility]. Past Medical History Past Medical History: Atrial Fibrillation, Cancer, Diabetes Mellitus, GERD/Reflux, Hypertension, Pulmonary Embolus (PE), Sleep Apnea/CPAP/BIPAP Additional Past Medical History / Comment(s): LAST CHEMO 04/26/19; was on keytruda until aug 2019; uses CPAP, past hx. of a-fib;, esophageal cancer- received chemo & radiation last radiation tx completed 05/18/18, gout, dysphagia. . History of Any Multi-Drug Resistant Organisms: None Reported Past Surgical History: Joint Replacement Additional Past Surgical History / Comment(s): total L knee arthroplasty and replacement; nasal surg., EGD, colonoscopies, vein surg. right leg, PORT A CATH Past Anesthesia/Blood Transfusion Reactions: Previous Problems w/ Anesthesia Additional Past Anesthesia/Blood Transfusion Reaction / Comment(s): Woke up during knee surg & colonoscopy Past Psychological History: No Psychological Hx Reported Additional Psychological History / Comment(s): . Smoking Status: Former smoker Past Alcohol Use History: None Reported Additional Past Alcohol Use History / Comment(s): Smoked 1-2 ppd intermittently. Started at age 16y.o. Quit approx 1978 Past Drug Use History: None Reported - Past Family History Brother(s) Family Medical History: Cancer, Deep Vein Thrombosis (DVT) Additional Family Medical History / Comment(s): 1 brother with esophageal CA; 1 brother with CA to " veins of heart" and DVTs. Father Family Medical History: Cancer, GI Bleed Additional Family Medical History / Comment(s): Father lived to be 92 yrs old. SKin cancer. Mother Family Medical History: Dementia Additional Family Medical History / Comment(s): Mother at the age of 87yrs. Medications and Allergies Home Medications Medication Instructions Recorded Confirmed Type Bisacodyl [Dulcolax] 10 mg RECTAL DAILY PRN 10/13/19 10/13/19 History Glycopyrrolate Inj. 0.2mg/Ml 1 injection IM Q4H PRN 10/13/19 10/13/19 History Hyoscyamine Elixir [Levsin 0.125 mg PO Q4H PRN 10/13/19 10/13/19 History 0.125MG/ML Drops] LORazepam [Ativan] 0.5 mg PO Q1H PRN 10/13/19 10/13/19 History Morphine Sulfate [Morphine Sulfate 10 mg PO Q1H PRN 10/13/19 10/13/19 History Oral Soln Conc (20 MG/ML)] Ondansetron HCl [Zofran] 4 mg PO Q6H PRN 10/13/19 10/13/19 History Allergies Allergy/AdvReac Type Severity Reaction Status Date / Time No Known Allergies Allergy Verified 10/13/19 08:41 Physical Exam Vitals: Vital Signs Temp Pulse Resp BP Pulse Ox 10/13/19 05:24 109 H 14 98 10/13/19 01:20 97.6 F 117 H 18 105/72 92 L Intake and Output 10/12/19 10/13/19 10/13/19 22:59 06:59 14:59 Intake Total 7.106 Balance 7.106 Intake: Intake, IV Titration 7.106 Amount Morphine Sulfate (100 mg/ 7.106 2 ml) 100 mg In Sodium Chloride 0.9% 100 ml @ 1 MG/HR 1.02 mls/hr IV . Q24H [facility] Rx#:[id number] Other: Voiding Method Incontinent Weight 114.759 kg Thrombosis Risk Factor Assmnt - Choose All That Apply Any of the Below Risk Factors Present?: Yes Each Factor Represents 1 point: Obesity (BMI >25), Swollen legs (current) Each Risk Factor Represents 2 Points: Central venous access Each Risk Factor Represents 3 Points: Age 75 years or older, History of DVT/PE Other congenital or acquired thrombophilia - If yes, enter type in comment: No Thrombosis Risk Factor Assessment Total Risk Factor Score: 10 Thrombosis Risk Factor Assessment Level: High Risk
[2019-10-14] MEDS: MORPHINE SULFATE (100 MG/2 ML) 100 MG in SODIUM CHLORIDE 0.9% 100 ML IV SCH ×2 (11:44→16:44)
[2019-10-15] MEDS: LORazepam 2 MG/ML INJ IV PRN ×4 (03:38→22:19)
[2019-10-15] MEDS: GLYCOPYRROLATE 0.2 MG/ML 2 ML VIAL IVP PRN (04:14)
[2019-10-15 05:08] VITALS: RESP 8
[2019-10-16] MEDS: SCOPOLAMINE 1.5MG/72HR PATCH TRANSDERM SCH (02:27)
[2019-10-16] MEDS: LORazepam 2 MG/ML INJ IV PRN ×5 (02:38→18:52)
[2019-10-16] MEDS: MORPHINE SULFATE (100 MG/2 ML) 100 MG in SODIUM CHLORIDE 0.9% 100 ML IV SCH (05:13)
[2019-10-16] MEDS: MORPHINE SULFATE 2 MG/ML SYRINGE IV PRN (14:01)
[2019-10-16] MEDS: GLYCOPYRROLATE 0.2 MG/ML 2 ML VIAL IVP PRN (14:55)
--- NOTE | 2019-10-17 11:16 | DS ---
DISCHARGE SUMMARY DATE OF ADMISSION: 10/13/2019 DATE PATIENT : 10/16/2019. CAUSE OF : Advanced esophageal cancer. HOSPITAL COURSE: This patient admitted for for symptom control for stacking up uncontrolled hiccups. The patient was managed with comfort measures including morphine. Family was present. MMODL / IJN: [id number] /
== END 2019-10-16 21:45 | disposition expired | DRG 951 ==
LOC: 5NMEDONC 10-13 01:08
PROVIDERS: ADMIT Hospitalist; ATTEND Hospitalist
DX: Z51.5 Encounter for palliative care (principal); C15.9 Malignant neoplasm of esophagus, unspecified; R06.6 Hiccough; E11.9 Type 2 diabetes mellitus without complications; K21.9 Gastro-esophageal reflux disease without esophagitis; I10 Essential (primary) hypertension; R13.10 Dysphagia, unspecified; Z80.0 Family history of malignant neoplasm of digestive organs; Z86.711 Personal history of pulmonary embolism; Z80.8 Family history of malignant neoplasm of other organs or systems; Z83.2 Family history of diseases of the blood and blood-forming organs and certain disorders involving the immune mechanism; Z92.21 Personal history of antineoplastic chemotherapy; Z92.3 Personal history of irradiation; I48.91 Unspecified atrial fibrillation; Z87.891 Personal history of nicotine dependence; Z96.652 Presence of left artificial knee joint; Z79.899 Other long term (current) drug therapy